=== PATIENT | female | born 1985 | race Caucasian/White ===

== ENCOUNTER → 2019-05-11 10:16 | Outpatient (BNVA) | payer OTHER, SELFPAY | PROVIDERS: Family Provider Electrodiagnostic Medicine; PCP Electrodiagnostic Medicine; Visit Provider Nurse Practitioner Psychiatric/Mental Health | DX: Z51.81 Encounter for therapeutic drug level monitoring (principal); F43.12 Post-traumatic stress disorder, chronic; F60.3 Borderline personality disorder; F50.81 Binge eating disorder; F41.1 Generalized anxiety disorder; E11.9 Type 2 diabetes mellitus without complications | CPT/HCPCS: 80178; 90832; 99214 ==

== ENCOUNTER → 2019-05-18 08:25 | Outpatient (BNVA) | payer OTHER, SELFPAY | PROVIDERS: Family Provider Electrodiagnostic Medicine; PCP Electrodiagnostic Medicine; Visit Provider Nurse Practitioner Psychiatric/Mental Health | DX: Z51.81 Encounter for therapeutic drug level monitoring (principal) | CPT/HCPCS: 80178; 84443 ==

== ENCOUNTER → 2019-05-22 08:07 | Outpatient (BNVA) | payer OTHER, SELFPAY | PROVIDERS: Family Provider Electrodiagnostic Medicine; PCP Electrodiagnostic Medicine; Visit Provider Nurse Practitioner Psychiatric/Mental Health | DX: F31.63 Bipolar disorder, current episode mixed, severe, without psychotic features (principal); F41.1 Generalized anxiety disorder; F50.81 Binge eating disorder; F60.3 Borderline personality disorder; F43.12 Post-traumatic stress disorder, chronic; F17.290 Nicotine dependence, other tobacco product, uncomplicated | CPT/HCPCS: 99214 ==

== ENCOUNTER → 2019-06-09 08:01 | Outpatient (BNVA) | payer OTHER, SELFPAY | PROVIDERS: Family Provider Electrodiagnostic Medicine; PCP Electrodiagnostic Medicine; Visit Provider Nurse Practitioner Psychiatric/Mental Health | DX: Z79.899 Other long term (current) drug therapy (principal); F31.63 Bipolar disorder, current episode mixed, severe, without psychotic features; F41.1 Generalized anxiety disorder; F50.81 Binge eating disorder; F60.3 Borderline personality disorder; F43.12 Post-traumatic stress disorder, chronic; F17.290 Nicotine dependence, other tobacco product, uncomplicated | CPT/HCPCS: 99214 ==

== ENCOUNTER → 2019-06-12 08:43 | Outpatient (BNVA) | payer OTHER, SELFPAY | PROVIDERS: Family Provider Electrodiagnostic Medicine; PCP Electrodiagnostic Medicine; Visit Provider Nurse Practitioner Psychiatric/Mental Health | DX: Z79.899 Other long term (current) drug therapy (principal) | CPT/HCPCS: 83036; 85025 ==

== ENCOUNTER 2019-06-12 13:23 | Outpatient (CLI) | payer OTHER, SELFPAY ==
--- NOTE | 2019-06-12 | ECG_ITS ---
Measurements Intervals [place] Rate: 101 P: 51 SD: 150 QRS: 19 QRSD: 89 T: 56 QT: 337 QTc: 437 SINUS TACHYCARDIA LOW QRS VOLTAGE IN PRECORDIAL LEADS [QRS DEFLECTION < 1.0 mV IN CHEST LEADS] SEPTAL MYOCARDIAL INFARCTION [40+ ms Q WAVE IN V1/V2], PROBABLY OLD Compared to ECG 10/05/2016 19:04:27 Sinus rhythm no longer present Myocardial infarct finding still present Electronically Signed On 06-13-2019 8:10:59 CDT by Donna Hastings [email or web address]
== END 2019-06-12 13:24 | disposition home or self-care (01) ==
LOC: RT 13:28
PROVIDERS: Family Provider Electrodiagnostic Medicine; PCP Electrodiagnostic Medicine; Visit Provider Nurse Practitioner Psychiatric/Mental Health
DX: Z79.899 Other long term (current) drug therapy (principal); R00.0 Tachycardia, unspecified
CPT/HCPCS: 80053; 80061; 93005; 93010

== ENCOUNTER → 2019-06-18 08:30 | Outpatient (BNVA) | payer OTHER, SELFPAY | PROVIDERS: Family Provider Electrodiagnostic Medicine; PCP Electrodiagnostic Medicine; Visit Provider Nurse Practitioner Psychiatric/Mental Health | DX: F60.3 Borderline personality disorder (principal); F31.63 Bipolar disorder, current episode mixed, severe, without psychotic features; F41.1 Generalized anxiety disorder; F50.81 Binge eating disorder; F43.12 Post-traumatic stress disorder, chronic; R94.31 Abnormal electrocardiogram [ECG] [EKG]; F17.290 Nicotine dependence, other tobacco product, uncomplicated | CPT/HCPCS: 99213 ==

== ENCOUNTER 2020-05-17 14:01 | Outpatient (CLI) | payer OTHER, SELFPAY ==
--- NOTE | 2020-05-17 14:05 | USCV_ITS ---
Lilliepraful Kristy Age: 34 Gender: F : 1985 Exam Date: 05/17/2020 14:18 Ordering Phys: Duyen WaddellP RAIL TRACK LAYER Technologist: Lita Dave [place] [facility] [place]: PALP BP: 133 / 88 HR: 72 Rhythm: Sinus Technical Quality: Adequate MEASUREMENTS (Male / Female) Normal Values 2D ECHO LV Diastolic Diameter PLAX 3.5 cm 4.2 - 5.9 / 3.9 - 5.3 cm LV Systolic Diameter PLAX 2.4 cm LV Chamber Size 3.1 cm IVS Diastolic Thickness 1.6 cm 0.6 - 1.0 / 0.6 - 0.9 cm IVS Systolic Thickness 1.7 cm LVPW Diastolic Thickness 1.6 cm 0.6 - 1.0 / 0.6 - 0.9 cm LVPW Systolic Thickness 1.2 cm RV Chamber Size 2.8 cm LVOT Diameter 2.0 cm LV Ejection Fraction 2D Teich 59.5 % LV Ejection Fraction MOD 2C 41.8 % LV Ejection Fraction 2C AL 38.7 % LA Diameter 3.4 cm LA Width 2.7 cm LA Height 4.3 cm RA Width 3.3 cm RA Height 3.7 cm Aorta at Sinotubular Diameter 3.3 cm M-MODE LV Diastolic Diameter MM 5.8 cm 4.2 - 5.9 / 3.9 - 5.3 cm LV Systolic Diameter MM 4.0 cm LV Ejection Fraction MM Teich 57.6 % IVS Diastolic Thickness MM 1.1 cm 0.6 - 1.0 / 0.6 - 0.9 cm IVS Systolic Thickness MM 1.5 cm LVPW Diastolic Thickness MM 1.1 cm 0.6 - 1.0 / 0.6 - 0.9 cm LVPW Systolic Thickness MM 1.7 cm Aortic Annulus Diameter 2.6 cm LA Ao Ratio MM 1.4 MV E Point Septal Separation 0.3 cm DOPPLER AV Peak Velocity 153.0 cm/s LVOT Peak Velocity 88.0 cm/s AV Area Cont Eq vti 1.9 cm squared AV Area Cont Eq pk 1.9 cm squared MV Area PHT 4.1 cm squared Mitral E to A Ratio 1.4 MV E' Velocity 59.0 cm/s Mitral E to MV E' Ratio 9.4 Mitral E to LV E' Lateral Ratio 7.5 Mitral E to LV E' Septal Ratio 13.0 TR Peak Velocity 129.5 cm/s TR Peak Gradient 6.7 mmHg TR Mean Velocity 90.9 cm/s TR Mean Gradient 3.8 mmHg TR Velocity Time Integral 32.7 cm TV Peak E Velocity 84.0 cm/s Right Atrial Pressure 3.0 mmHg Pulmonary Artery Systolic Pressu 9.7 mmHg PV Peak Velocity 99.0 cm/s RV Acceleration Time 0.1 s RV Ejection Time 0.4 s RV AcT/ET 0.4 FINDINGS Left Ventricle Normal left ventricular cavity size. Normal left ventricular systolic function. No regional wall motion abnormalities. Left ventricular ejection fraction is estimated at 57 %. Normal diastolic function. Right Ventricle The right ventricle is normal in size and function. Right Atrium The right atrium is normal in size. Left Atrium The left atrium is normal in size. Mitral Valve Structurally normal mitral valve without significant stenosis or prolapse. There is no mitral regurgitation. Aortic Valve Not well visualized probably normal Tricuspid Valve Mild tricuspid valve regurgitation. Pulmonic Valve Structurally normal pulmonic valve without significant stenosis. There is no pulmonic regurgitation. Pericardium Normal pericardium without effusion. Aorta Normal ascending aorta dimension. CONCLUSIONS 1-Normal left ventricular cavity size. Normal left ventricular systolic function. No regional wall motion abnormalities. Left ventricular ejection fraction is estimated at 57 %. Normal diastolic function. 2-No significant valve abnormalities. 3-There is no pericardial effusion. 4-Pulmonary artery systolic pressure is within normal limits. 5-Right atrial pressure is around 5 mm of mercury. 6-There are no prior echocardiogram studies to compare. Daysi Hastings MD (Electronically Signed) Final Date: 17 May 2020 19:01 S
== END 2020-05-17 14:02 | disposition home or self-care (01) ==
PROVIDERS: PCP Nurse Practitioner Family; Visit Provider Nurse Practitioner Family
DX: R00.2 Palpitations (principal)
CPT/HCPCS: 93306

== ENCOUNTER 2020-07-24 08:00 | Emergency (ER) | payer OTHER, SELFPAY ==
--- NOTE | 2020-07-24 08:09 | ED_ITS ---
HPI - Extremity Injury (Lower) General: Chief Complaint: Extremity Injury, Lower Stated Complaint: R KNEE INJURY WHILE DANCING Time Seen by Provider: 07/24/20 08:09 Source: patient Mode of arrival: ambulatory Limitations: no limitations History of Present Illness: HPI Narrative: 35-year-old female comes in with injury to the right knee. Patient reports last night she was dancing and felt her knee shift weird causing sudden medial knee pain and discomfort. Patient states that she has had problems with that knee before and was told that she had stress fractures in it. Patient has joint line tenderness on the medial side. MD complaint: knee injury Type of Injury: inversion Place: other (Dance cervantes) Severity: moderate Relieving factors: rest Exacerbating factors: weight bearing Context: other (Dancing) Associated symptoms: Reports inability to bear weight Other symptoms: none Review of Systems General: Reports: 10 or more systems reviewed and unremarkable except in HPI and below Musc: Reports: other (Right knee injury) [facility] PFSH: Medical History (Updated 07/24/20 @ 08:40 by ARNOLD Joshi) Binge eating disorder Bipolar disorder, current episode mixed, severe, without psychotic features R/O Borderline personality disorder Essential hypertension Generalized anxiety disorder Nicotine dependence, other tobacco product, uncomplicated Non-insulin dependent type 2 diabetes mellitus Palpitation Post-traumatic stress disorder, chronic Family History Mother Fistula Hypertension Heart problem Grandmother Heart problem NV; Pacemaker Father Hypertension Social History Smoking and tobacco status: current every day smoker e-cigarettes E-Cigarette Details: vaporizer device E-cig/vape details: 3mg nicotine /120ml per 7 days Physical Exam Const: COMMON NORMALS: no acute distress and patient oriented x3 GENERAL APPEARANCE: cooperative HENMT: COMMON NORMALS: normocephalic and Normal external nose present HEAD & SCALP: normal to inspection and normocephalic NOSE: Normal external nose present Eye: GENERAL EYE: appearance normal, both eyes and all related structures Neck/C-Spine: COMMON NORMALS: full ROM Chest: COMMONS NORMALS: normal inspection of the chest Resp: COMMON NORMALS: normal respiratory effort EFFORT & INSPECTION: Yes able to speak in complete sentences Cardio: COMMON NORMALS: regular rate and regular rhythm RATE: regular rate RHYTHM: regular rhythm GI: COMMON NORMALS: non-tender Extremity: NARRATIVE EXTREMITY EXAM: Medial knee joint line tenderness on palpation. Mild swelling to the knee joint. Unable to bear weight due to pain. Distal pulses are intact. No obvious ecchymosis is noted to the knee. Neuro: COMMON NORMALS: patient oriented x3 and moves all extremities Psych: COMMON NORMALS: mental status grossly normal and cooperative Skin: COMMON NORMALS: no rashes or lesions noted GENERAL SKIN EXAM: no rashes or lesions noted Course Vital Signs: Vital signs: Vital Signs Temperature 97.9 F 07/24/20 08:10 Pulse Rate 86 07/24/20 08:10 Respiratory Rate 20 H 07/24/20 08:10 Blood Pressure 177/102 07/24/20 08:10 Pulse Oximetry 99 07/24/20 08:10 MDM - Extremity Injury (Lower) MDM Narrative: Medical decision making narrative: Patient comes in today with injury to the right knee. On exam patient has some joint line tenderness to the medial right knee. There is some mild swelling and discomfort to the knee. Distal pulses are intact. Respirations are even lungs are clear to auscultation. Differential diagnosis includes but not limited to contusion, sprain, meniscal tear, ligament tear. X-ray noted no acute fractures. Reviewed exam with patient with recommendations for treatment and follow-up. Patient reported understanding agreed to plan. Discharge Plan Discharge Patient Disposition: Home Clinical Impression: Acute internal derangement of knee Qualifiers: Laterality: left Qualified Code(s): M23.92 - Unspecified internal derangement of left knee Condition: Stable Prescriptions: New hydrocodone-acetaminophen 5-325 mg tablet 1 tab PO Q8H PRN (Reason: pain) Qty: 7 RF: 0 No Action diphenhydramine-acetaminophen [Tylenol PM Extra Strength] 25-500 mg tablet 1 tab PO Q6H PRNRF: 0 nitroglycerin [Nitrostat] 0.4 mg tablet, sublingual 0.4 mg SUBLINGUAL Q5M PRN (Reason: chest pain) 30 Days Qty: 25 RF: 6 cephalexin [Keflex] 500 mg capsule 500 mg PO TID RF: 0 omeprazole 20 mg tablet,delayed release (DR/EC) 20 mg PO BID RF: 0 amlodipine 5 mg tablet 5 mg PO DAILY Qty: 30 RF: 3 Discharge Orders: Discharge ED (Routine); Ordered 07/24/20 Ordered By: Javed Denny Referrals: Duyen Waddell FNP [Primary Care Provider] - Discharge Diet: Usual diet Discharge Activity: Limit activity as instructed Patient Instructions: Knee Sprain (ED), Opioid Safety Activity Restrictions/Additional Instructions: Increase activity as tolerated. Use ice packs to the knee 15-minute intervals as needed for knee pain. Use acetaminophen for further pain relief. Use hydrocodone with acetaminophen for breakthrough pain. Drink plenty of water with medication. Do gentle range of motion exercises of the knee. Increase weightbearing as tolerated. Follow-up with weight reduction specialist for further evaluation and treatment within 1 week. Return to the ER for new concerns. Coding Level of Care Code ED Chemical Operator for Roque Fwd Exam Comprehensive
--- NOTE | 2020-07-24 08:09 | XRR_ITS ---
PROCEDURE INFORMATION: Exam: XR Right Knee Exam date and time: 07/24/2020 8:18 AM Age: 35 years old Clinical indication: Pain; Knee; Right; Additional info: Injury TECHNIQUE: Imaging protocol: XR Right knee. Views: Frontal, lateral, and oblique, 3 views. COMPARISON: No relevant prior studies available. FINDINGS: Bones/joints: No acute bony abnormality identified. A quadriceps tendon enthesis of the superior pole of the patella is present. Soft tissues: Normal. XR/XR knee RT 3V* [id number] IMPRESSION: No acute bony injury identified.
[2020-07-24 08:10] VITALS: BP 177/102; PULSE 86; RESP 20; TEMP 36.6; O2SAT 99; BMI 45.1
[2020-07-24] MEDS: HYDROcodone-acetaminophen 7.5-325 mg Tablet 1 TAB PO (08:27)
[2020-07-24 09:50] VITALS: BP 168/92; PULSE 75; RESP 16; O2SAT 98
--- NOTE | 2020-07-25 09:41 | DCPLANNER ---
senior electrical project manager had message to schedule a follow up appointment for patient with ortho. senior electrical project manager called the ortho clinic, spoke with Vanessa, gave clinic patients information. senior electrical project manager was told that patients information would be printed and reviewed. Clinic will call patient with appointment information.
--- NOTE | 2020-07-26 07:43 | DCPLANNER ---
Patient has a follow up appointment scheduled for Monday, July 27, 2020 at 1:[address] Llanos at [facility]. Clinic will call patient with appointment information.
--- NOTE | 2020-10-18 07:33 | DCPLANNER ---
Patient had a follow up appointment scheduled for 07.27.[address] Llanos at [facility] - patient did attend appointment.
== END 2020-07-24 09:52 | disposition home or self-care (01) ==
PROVIDERS: Emergency Provider Nurse Practitioner Family; PCP Nurse Practitioner Family
DX: M23.92 Unspecified internal derangement of left knee (principal); I10 Essential (primary) hypertension; E11.9 Type 2 diabetes mellitus without complications; F17.290 Nicotine dependence, other tobacco product, uncomplicated
CPT/HCPCS: 73562; 99283; E0114

== ENCOUNTER 2020-08-15 08:25 | Outpatient (CLI) | payer OTHER, SELFPAY ==
--- NOTE | 2020-08-15 08:45 | MR_ITS ---
WS: [id number] MRI RIGHT KNEE HISTORY: S89.90XA - Unspecified injury of unspecified lower leg, injury 2 weeks ago. COMPARISON: Radiograph 07/24/2020 Anterior cruciate ligament: Small amount of increased signal within the ACL but no full-thickness tea r. Posterior cruciate ligament: Intact. Medial collateral ligament: Intact. Posterior lateral corner structures: Intact. Medial menisci: Intact. Normal signal, size and shape. Lateral meniscus: Intact. Normal signal, size and shape. Extensor mechanism: Distal quadriceps tendon and patellar tendons are intact. Fluid and soft tissue: There is small amount of fluid in the suprapatellar bursa. Small amount of nga ma anterior to the patella. No Leo's cyst. Osseous and articular structures: Patellofemoral compartment: Very slight lateral subluxation of the patella. Very superficial defect i n the cartilage over the patellar eminence. There is a small amount of increased signal in the soft t issues of the medial patella. Patellar retinaculum is not identified as an intact structure. Suspect there is a small amount of marrow edema in the medialmost patella. Medial compartment: Normal. Lateral compartment: Normal joint space. No cartilage defect. There is a small amount of marrow edema in the anterior lateral most femoral condyle with a maximum diameter of 1.2 cm. No fracture. MR/MR knee RT wo con* [id number] IMPRESSION: 1. Marrow edema in the lateral femoral condyle. Likely due to lateral transien t dislocation of the patella. 2. Small joint effusion. 3. Medial patellar retinaculum is poorly visualized and there is an increased T2 signal. I suspect this injury pattern is related to a transient lateral don llar displacement with a high-grade tear involving the medial patellar retinacu lum.
== END 2020-08-15 08:26 | disposition home or self-care (01) ==
LOC: RADSHAW 08:29
PROVIDERS: PCP Nurse Practitioner Family; Visit Provider Orthopaedic Surgery
DX: S89.91XA Unspecified injury of right lower leg, initial encounter (principal); X58.XXXA Exposure to other specified factors, initial encounter; M25.461 Effusion, right knee
CPT/HCPCS: 73721

== ENCOUNTER 2020-10-17 04:34 | Outpatient (CLI) | payer OTHER, SELFPAY ==
[2020-10-17 04:45] VITALS: BP 155/88; PULSE 107; RESP 20; TEMP 37.1; O2SAT 99; BMI 45.1
--- NOTE | 2020-10-17 05:07 | AMB.MCA ---
Patient Information COVID 19 common symptoms: positive fever(s), chills, cough, non-productive cough, fatigue, body aches, headache(s), loss of sense of smell and/or taste, throat pain, nasal congestion and nausea COVID 19 other sytmptoms: negative requiring oxygen Severity: mild Treatment prior to arrival: none Other details: 35-year-old female meets criteria based on her BMI. Risk benefits alternatives discussed and reviewed patient wishes to proceed with infusion. FRANCISCO JWayne COVID test results: No Data to Display Criteria/Plan Inclusion/Exclusion Criteria weight >/= 40kg, + direct test </= 10 days ago and symptom onset </= 10 days ago BMI >/= 35 not requiring hospitalization, not requiring oxygen (if not chronically on oxygen) and no increase oxygen requirement (if chronically on oxygen) Patient education patient/family/caregiver received/reviewed fact sheet, Emergency Use Authorization/unapproved drug status discussed with patient/family/caregiver, alternatives to this treatment discussed with patient/family/caregiver, risks and benefits of medication reviewed with patient/family/caregiver, patient/family/caregiver given opportunity for questions, which were answered and patient consents to receiving Monoclonal Antibody Treatment Plan for treatment Meets criteria for Monoclonal Antibody infusion Ordering Monoclonal Antibody infusion for today
[2020-10-17 07:20] VITALS: BP 117/75; PULSE 79; RESP 18; O2SAT 100
[2020-10-17 08:25] VITALS: BP 148/92; PULSE 84; RESP 18; O2SAT 99
--- NOTE | 2020-10-25 15:45 | DCPLANNER ---
vehicle leasing and rental manager had message that patient received the monoclonal antibody infusion. vehicle leasing and rental manager called to check on patient after receiving the infusion. vehicle leasing and rental manager unable to speak with patient at this time a voicemail was left for patient to return child welfare caseworker phone call.
== END 2020-10-17 04:35 | disposition home or self-care (01) ==
LOC: ER 04:35
PROVIDERS: PCP Nurse Practitioner Family; Visit Provider Nurse Practitioner
DX: U07.1 COVID-19 (principal)
CPT/HCPCS: 96365

== ENCOUNTER 2020-10-27 16:19 | Outpatient (CLI) | payer OTHER, SELFPAY ==
[2020-10-27 17:30] LABS: D Dimer 0.34 ug/mIFEU (0-0.59)
== END 2020-10-27 16:20 | disposition home or self-care (01) ==
PROVIDERS: PCP Nurse Practitioner Family; Visit Provider Family Medicine
DX: Z86.16 Personal history of COVID-19 (principal)
CPT/HCPCS: 85378

== ENCOUNTER 2020-12-02 09:52 | Outpatient (CLI) | payer OTHER, SELFPAY ==
--- NOTE | 2020-12-08 12:32 | ONC CON_ITS ---
Dr. Summers New Patient Note Patient: Kristy Smith Unit #: [id number]: 1985 Dicatated By: Dustin Summers M.D.Date of Visit: Dec 02, 2020 Onc MED New Patient/Consult Referring Physician: ARNOLD CLEMENS, F.N.P. Chief Complaint: Anemia. History of Present Illness: This is a 35-year-old woman with hypochromic/microcytic anemia, presumed iron deficiency. She has hypertension and she has type 2 diabetes, diet controlled. In September 2020 she was diagnosed with COVID-19 virus infection. She was given the monoclonal antibody infusion, and she did not require hospitalization. During follow-up with Jennifer Waddell he was noted to be moderately anemic with her CBC on 10/27/2020 showing hemoglobin 9.1 g and hematocrit 29.4%. The red cell indices were hypochromic/microcytic with MCV 72 and MCH 22. The white blood cell count was normal at 5100 and the platelet count was normal at 384,000. She indicates that she was found to have a low iron level, but that result does not appear to have been included with the records we received. She does complain of extreme fatigue, though she is still working. Her ECOG score is 1. She says her appetite has been bad. She is not had any fever since the Covid infection in September. She sometimes has hot flashes and she sometimes has sweating. She has been having blurred vision and she reports that her gums feel raw. She does not complain of cough, but she does have shortness of breath. She also complains that she has dull pain in the upper left chest and across her back, and ever since the monoclonal antibody infusion she has been having episodes of sharp shooting pain across her upper right chest. She reports having nausea frequently. Her bowels fluctuate between diarrhea and constipation. She has not been aware of any blood in the stool, and she says she did have a negative stool Hemoccult test. She has frequent urination and she occasionally has incontinence. Her periods have been regular, but they are heavy, and she tends to pass mostly clots. She has some joint pain, attributable to wear and tear. She has had headaches in the past, but since the COVID-19 infection her headaches have been constant. She has been dizzy a lot, and she tends to be lightheaded in the mornings. She frequently has numbness in her hands which goes all the way up her arms to her shoulders. She has anxiety and depression. She says her depression had bottomed out with the Covid infection. Past Medical History: Her medical history consists of anxiety, depression, hypertension, and type II diabetes, diet controlled. She has a history of COVID-19 virus infection in September 2020. Past Surgical History: Her surgical/procedural history includes cholecystectomy in 2018 and gastric sleeve procedure in 2012. Medications: amLODIPine Besylate (5 mg) Tablet Oral daily, Ascorbic Acid (500 mg) Tablet Oral daily, B Complex Tablet Oral daily, Biotin (5000 mcg) Tablet Oral daily, Cholecalciferol (50 mcg ) Tablet Oral daily, Escitalopram Oxalate (10 mg) Tablet Oral daily, Omeprazole (20 mg) Capsule Delayed Release Oral daily, QUEtiapine Fumarate (100 mg) Tablet Oral daily, Zinc (50 mg) Tablet Oral daily Allergies: LaMICtal, Penicillin V Potassium, traZODone HCl, and Vraylar. Social History: Ms. Smith is . She has history of smoking 1 pack of cigarettes daily from 2012 until 2017. She has just occasional alcohol use. Family History: Father has hypertension, diabetes, asthma, and depression. Her mother has hypertension, heart disease, and rheumatoid arthritis. She has been treated for cervical cancer. A sister has anxiety and depression. Both maternal grandparents had diabetes. Review Of Symptoms: Constitutional - She reports having extreme fatigue. Her appetite is bad. She has not had fever since her illness in September. She sometimes has hot flashes and she sometimes has sweating. ECOG score is 1, Eyes - She has been having blurry vision, ENMT - She has hearing loss and tinnitus. No sinus congestion/drainage. She complains that her gums feel raw. No sore throat or difficulty swallowing, Hematologic/Lymphatic - She has easy bruising and she also bleeds easily from cuts, Respiratory - She does not complain of cough, but she does have shortness of breath. She has been having dull pain in her upper left chest and across her back, and she has episodes of sharp shooting pain across her upper right chest. She has not had any hemoptysis, Cardiovascular - No angina pain. No palpitations, Gastrointestinal - She has nausea pretty frequently. Her acid reflux is adequately managed with omeprazole. Her bowel fluctuates between diarrhea and constipation. She has not been aware of any blood in the stool, and she did have a negative stool Hemoccult, Genitourinary (F) - No dysuria or hematuria. She has urinary frequency and she occasionally has incontinence. Her menstrual periods are regular, but they tend to be heavy. She mostly just plasses clots, Musculoskeletal - She has some joint pain, attributable to wear and tear, mainly left shoulder, right knee, and ankles, Neurologic - She has a history of headaches. They have been almost constant since the Covid infection. She has been dizzy a lot and she also tends to be lightheaded in the mornings. She complains that her hands frequently go to sleep all the way up her arms to her shoulders, Psychiatric - She has anxiety and depression. She sleeps okay with medication. Vital Signs: Performed on Dec 02, 2020 10:51: 8, 6, 47.29 (HIGH), 2.35 sq.m, 66 in, 98 %, 81 /min, 18 /min, 130/83 mm(hg), 97.6 F (LOW), and 293 lbs (HIGH). Physical Examination: Constitutional - She appears to be in good general health, Eyes - Sclerae nonicteric. Conjunctivae clear, ENMT - No lesions noted in the oral cavity, Neck - No mass or thyromegaly, Hematologic/Lymphatic - No cervical, clavicular, or axillary adenopathy, Respiratory - Lungs are clear with good air movement bilaterally, Cardiovascular - Heart rhythm is regular. There is no murmur, gallop, or rub noted, Abdomen - Moderately distended but soft. Liver and spleen are not enlarged. There is no abdominal mass or ascites noted and there is no inguinal adenopathy, Back/Spine - No spine or CVA tenderness noted, Extremities - Mild edema. Dorsalis pedis pulses are palpable bilaterally, Integumentary - No rashes. No suspicious skin lesions noted, Neurologic - No focal neurologic deficits noted. Problem List: 1. Hypochromic/microcytic anemia, presumed iron deficiency, most likely due to a combination of menstrual blood loss and inadequate oral iron absorption. 2. She had COVID-19 virus infection in September 2020. 3. Hypertension. 4. Type 2 diabetes, diet controlled. 5. Anxiety and depression. Problems Addressed with this Encounter and Plan: Patient with hypochromic/microcytic anemia, presumed iron deficiency. This would most likely be due to to a combination of menstrual blood loss and inadequate oral iron absorption associated with her gastric sleeve procedure. She does have a history of intolerance to oral iron supplements, as in the past she consistently had vomiting on a variety of different oral iron preparations. As such, once I have confirmed the iron deficiency, she will be scheduled to come in for parenteral iron replacement with Injectafer, but that will be subject to verification of insurance coverage. She will have the usual 1-month interval follow-up to verify response. Signed By: Dustin Summers M.D. <<Signature on File>>
== END 2020-12-02 09:53 | disposition home or self-care (01) ==
LOC: ONCMED 09:57
PROVIDERS: PCP Nurse Practitioner Family; Visit Provider Internal Medicine Medical Oncology
DX: D50.9 Iron deficiency anemia, unspecified (principal); I10 Essential (primary) hypertension; E11.9 Type 2 diabetes mellitus without complications; F41.8 Other specified anxiety disorders; Z79.899 Other long term (current) drug therapy; Z86.16 Personal history of COVID-19
CPT/HCPCS: 99204

== ENCOUNTER 2020-12-09 05:48 | Outpatient (CLI) | payer OTHER, SELFPAY ==
[2020-12-09 09:43] LABS: Basophils % 0.4 %; Eosinophils # 0.1 10^3/uL (0.0-0.8); Eosinophils % 0.6 %; Hematocrit 31.4 % (37.0-47.0); Hemoglobin 9.1 g/dL (11.5-15.3); Lymphocytes # 1.9 10^3/uL (0.8-4.8); Lymphocytes % 24.8 %; Mean Corpuscular Hemoglobin 21.4 pg (28.0-34.0); Mean Corpuscular Volume 73.7 fl (81-99); Mean Platelet Volume 8.9 fL (7.4-10.4); Monocytes # 0.6 10^3/uL (0.2-0.9); Monocytes % 7.3 %; Neutrophils # 5.17 10^3/uL (1.8-7.7); Neutrophils % 66.6 %; Nucleated Red Blood Cells % 0 %; Platelet Count 421 10^3/cmm (130-400); Red Blood Count 4.26 10^6/uL (4.1-5.3); Red Cell Distribution Width 17.3 % (12.1-15.1); White Blood Count 7.8 10^3/uL (4.0-10.0)
[2020-12-09] MEDS: ferric carboxy (IVPB) 750 MG in sodium chloride 0.9% (100 ml) 100 ML 460 MG IV (09:56)
[2020-12-09 10:04] LABS: Ferritin 10 ng/mL (15-150); Iron 16 ug/dL (37-145); Percent Saturation 3.5 % (20-50); Total Iron Binding Capacity 453 mcg/dl; Unsaturated Iron Binding 437 ug/dL (112-347)
== END 2020-12-09 05:49 | disposition home or self-care (01) ==
LOC: ONCMED 05:50
PROVIDERS: PCP Nurse Practitioner Family; Visit Provider Internal Medicine Medical Oncology
DX: D50.9 Iron deficiency anemia, unspecified (principal)
CPT/HCPCS: 82728; 83540; 83550; 85025; 96365; J1439

== ENCOUNTER 2020-12-16 06:53 | Outpatient (CLI) | payer OTHER, SELFPAY ==
[2020-12-16] MEDS: ferric carboxy (PYXIS) 750 mg/15 mL INJ IV (10:22)
[2020-12-16] MEDS: sodium chloride 0.9% 100 mL Bag IV (10:22)
== END 2020-12-16 06:54 | disposition home or self-care (01) ==
LOC: ONCMED 06:53
PROVIDERS: PCP Nurse Practitioner Family; Visit Provider Internal Medicine Medical Oncology
DX: D50.9 Iron deficiency anemia, unspecified (principal); Z79.899 Other long term (current) drug therapy
CPT/HCPCS: 96365; J1439

== ENCOUNTER 2020-12-28 10:28 | Emergency (ER) | payer OTHER, SELFPAY ==
[2020-12-28 10:42] VITALS: BP 151/123; PULSE 74; RESP 18; TEMP 36.1; O2SAT 99; BMI 44.4
[2020-12-28 10:59] VITALS: BP 138/79; PULSE 76; RESP 16; O2SAT 98
--- NOTE | 2020-12-28 11:02 | PC.NURSE ---
Patient reports falling from tripping in a hole causing Right arm up to elbow and right leg from ankle to hip. approx 1 hour ago.
--- NOTE | 2020-12-28 11:18 | XR_ITS ---
WS: [id number] RIGHT ANKLE: 3 VIEW(S) TECHNIQUE: AP, oblique(s) and lateral. HISTORY: fall/pain COMPARISON: None available. Normal anatomic alignment with no fracture or dislocation. Mild narrowing at the joint space. Small osteophytes extend laterally from the talus causing narrowin g of the distal talofibular joint space. No osteochondral lesions or loose body. Small calcaneal spur. Enthesopathy at the Achilles tendon. XR/XR ankle RT min 3V* [id number] IMPRESSION: 1. No acute RIGHT ankle fracture. 2. Mild degenerative changes of osteoarthritis.
--- NOTE | 2020-12-28 11:18 | XR_ITS ---
WS: [id number] XR hip RT 2-3V wo/w pel* [id number] REASON FOR EXAM: fall/pain; one view pelvis too please FINDINGS: Mild narrowing of the hip joint space with marginal osteophyte formation of the acetabulum. Femoral neck and head are intact as is the remainder of the proximal right femur. No bony pelvic abnormality identified. No soft tissue abnormality. XR/XR hip RT 2-3V wo/w pel* [id number] IMPRESSION: No acute abnormality.
--- NOTE | 2020-12-28 11:18 | XR_ITS ---
WS: [id number] XR hand RT min 3V* [id number] REASON FOR EXAM: fall/pain FINDINGS: Joint spaces of the right hand are intact and well preserved. No fracture or other focal bone abnormality. No soft tissue abnormality. XR/XR hand RT min 3V* [id number] IMPRESSION: No acute abnormality.
--- NOTE | 2020-12-28 11:18 | XR_ITS ---
WS: [id number] XR knee RT 3V* [id number] REASON FOR EXAM: fall/pain FINDINGS: The joint spaces are intact and well preserved. No fracture or other focal bony abnormality. No soft tissue abnormality. XR/XR knee RT 3V* [id number] IMPRESSION: No acute abnormality.
--- NOTE | 2020-12-28 11:18 | W.ED.FALL ---
HPI - Fall General: Chief Complaint: Fall Stated Complaint: W/C: RLE/RUE INJURIES - FELL ON [facility] GR[facility] Time Seen by Provider: 12/28/20 10:56 Source: patient Mode of arrival: wheelchair Limitations: no limitations History of Present Illness: HPI Narrative: Patient is a 35-year-old female who presents to ED today for evaluation following a fall. Patient tells me she was walking outside of the hospital when she accidentally slipped and fell and landed onto her right side. Patient is an [facility] employee and states this is a Worker's Comp injury. She is complaining of pain to her right hand, right hip, right knee, and right ankle. Patient denies striking her head or LOC. No neck or back pain. She states she was able to get up following the fall and ambulate but required help to get to the ED. complaint: fall Onset (ago): minute(s) Fall from: standing Fall witnessed: yes, by bystander Place fall occurred: work Loss of consciousness: None Prolonged down time: no Symptoms prior to fall: none Context: tripped/slipped (raining outside ) Associated symptoms-after fall: Reports no associated symptoms; Denies abdominal pain, chest pain, headache(s) or neck pain Review of Systems Eyes: Denies: change in vision Card: Denies: chest pain, palpitations, syncope or pre-syncope Resp: Denies: dyspnea GI: Denies: abdominal pain Musc: Reports: joint pain; Denies: neck pain or back pain Skin/Breast: Reports: other (no lacerations noted) Neuro: Denies: headache(s), numbness in extremities, weakness in extremities or sensory changes [facility] ED PFSH: Medical History (Updated 12/28/20 @ 11:52 by RAMONA Rojas) Binge eating disorder Bipolar disorder, current episode mixed, severe, without psychotic features R/O Borderline personality disorder COVID-19 Essential hypertension Generalized anxiety disorder Non-insulin dependent type 2 diabetes mellitus Post-traumatic stress disorder, chronic Surgical History (Updated 12/06/20 @ 08:55 by Michael Villatoro MD) S/P laparoscopic sleeve gastrectomy (~2012) Status post laparoscopic cholecystectomy Family History Mother Fistula Hypertension Heart problem Grandmother Heart problem [place]; Pacemaker Father Hypertension Social History Smoking and tobacco status: never smoked Female Reproductive History: Date of last menstrual period: 12/25/20 Physical Exam Const: COMMON NORMALS: no acute distress, patient oriented x3, no limitations and alert GENERAL APPEARANCE: cooperative ORIENTATION/CONSCIOUSNESS: Yes awake, Yes oriented to person, Yes oriented to place and Yes oriented to time HENMT: COMMON NORMALS: normocephalic and atraumatic HEAD & SCALP: normocephalic and atraumatic Back/Pelvis: COMMON NORMALS: thoracic and lumbar spine normal to inspection, no thoracic nor lumbar tenderness and thoraco-lumbar ROM normal Extremity: GENERAL: Yes normal exam except as noted RIGHT UPPER EXTREMITY: Yes hand & digits (mild TTP R thenar eminence; scant ecchymosis present; full ROM) Right hand and digits: Yes neurovascular exam (normal) RIGHT LOWER EXTREMITY: Yes hip joint (very minor tenderness to lateral aspect) Right hip: Yes ROM (normal) and Yes neurovascular exam (normal), Yes knee joint (TTP anteriomedial joint line) Right knee: Yes palpation (mild swelling noted), Yes ROM (normal) and Yes neurovascular exam (normal) and Yes foot & digits (TTP medial ankle; no swelling; full ROM) Right ankle: Yes neurovascular exam (normal) Neuro: COMMON NORMALS: patient oriented x3, moves all extremities, no focal motor deficits and no sensory deficits noted SENSORIUM/ORIENTATION: Yes alert, Yes oriented to person, Yes oriented to place and Yes oriented to time Skin: TRAUMA: no lacerations or abrasions Course Vital Signs: Vital signs: Vital Signs Temperature 98.4 F 12/28/20 12:09 Pulse Rate 76 12/28/20 12:09 Respiratory Rate 16 12/28/20 12:09 Blood Pressure 146/88 12/28/20 12:09 Pulse Oximetry 98 12/28/20 12:09 MDM - Fall MDM Narrative: Medical decision making narrative: XRs neg. Main complaint is her R knee. Will MARY wrap and give crutches. She was instructed to go to Occupational Health for drug/etoh testing. Follow up with Worker's Comp as instructed. Imaging Data^: XR R ankle: Radiologist's impression: [address] [address]BRnv ReportSigned Patient: Kristy Bermanit #: [id number]: 1985Acct#:[id number]/Sex: 35 / FADM Date: 12/28/20Loc: ERRoom/Bed:Attending Dr: Ordering Provider/Ordering MD: Nieves Blake Date of Service: 12/28/20 Procedure(s): XR ankle RT min 3V* 27293 Accession Number(s): [id number] Report Number: [id number] WS: [id number] RIGHT ANKLE: 3 VIEW(S) TECHNIQUE: AP, oblique(s) and lateral. HISTORY: fall/pain COMPARISON: None available. Normal anatomic alignment with no fracture or dislocation. Mild narrowing at the joint space. Small osteophytes extend laterally from the talus causing narrowing of the distal talofibular joint space. No osteochondral lesions or loose body. Small calcaneal spur. Enthesopathy at the Achilles tendon. XR/XR ankle RT min 3V* 53152 IMPRESSION: 1. No acute RIGHT ankle fracture. 2. Mild degenerative changes of osteoarthritis. Dictated By:Shanelle Hampton DOSigned By:Shnaelle Hampton DOSigned Date/Time:12/28/20 1139DD/ 1137 XR R hand: Radiologist's impression: [address] [address] XRay Report Signed Patient: Kristy Berman Unit #: [id number] : 1985 Age/Sex: 35 / F ADM Date: 12/28/20 Loc: ER Room/Bed: Attending Dr: Ordering Provider/Ordering MD: Nieves Blake Date of Service: 12/28/20 Procedure(s): XR hand RT min 3V* 41059 Accession Number(s): [id number] Report Number: [id number] WS: [id number] XR hand RT min 3V* 39108 REASON FOR EXAM: fall/pain FINDINGS: Joint spaces of the right hand are intact and well preserved. No fracture or other focal bone abnormality. No soft tissue abnormality. XR/XR hand RT min 3V* [id number] IMPRESSION: No acute abnormality. Dictated By: Trevor Gerber Jr, MD Signed By: Trevor Gerber Jr, MD Signed Date/Time: 12/28/20 114 DD/ 1140 XR R hip/pelvis: Radiologist's impression: [address] [address] XRay Report Signed Patient: Kristy Berman Unit #: [id number] : 1985 Age/Sex: 35 / F ADM Date: 12/28/20 Loc: ER Room/Bed: Attending Dr: Ordering Provider/Ordering MD: Nieves Blake Date of Service: 12/28/20 Procedure(s): XR hip RT 2-3V wo/w pel* 72308 Accession Number(s): [id number] Report Number: [id number] WS: [id number] XR hip RT 2-3V wo/w pel* 92136 REASON FOR EXAM: fall/pain; one view pelvis too please FINDINGS: Mild narrowing of the hip joint space with marginal osteophyte formation of the acetabulum. Femoral neck and head are intact as is the remainder of the proximal right femur. No bony pelvic abnormality identified. No soft tissue abnormality. XR/XR hip RT 2-3V wo/w pel* [id number] IMPRESSION: No acute abnormality. Dictated By: Trevor Gerber Jr, MD Signed By: Trevor Gerber Jr, MD Signed Date/Time: 12/28/20 1143 DD/ 1141 XR R knee: Radiologist's impression: [address] [address] XRay Report Signed Patient: Kirsty Berman Unit #: [id number] : 1985 Age/Sex: 35 / F ADM Date: 12/28/20 Loc: ER Room/Bed: Attending Dr: Ordering Provider/Ordering MD: Nieves Blake Date of Service: 10/06/21 Procedure(s): XR knee RT 3V* 00947 Accession Number(s): [id number] Report Number: [id number] WS: [id number] XR knee RT 3V* 68552 REASON FOR EXAM: fall/pain FINDINGS: The joint spaces are intact and well preserved. No fracture or other focal bony abnormality. No soft tissue abnormality. XR/XR knee RT 3V* 60116 IMPRESSION: No acute abnormality. Dictated By: Trevor Gerber Jr, MD Signed By: Trevor Gerber Jr, MD Signed Date/Time: 12/28/20 1144 DD/ 1143 Discharge Plan Discharge Patient Disposition: Home Clinical Impression: Acute pain of right hip Fall from slipping Qualifiers: Encounter type: initial encounter Qualified Code(s): W01.0XXA - Fall on same level from slipping, tripping and stumbling without subsequent striking against object, initial encounter Contusion of hand, right Qualifiers: Encounter type: initial encounter Qualified Code(s): S60.221A - Contusion of right hand, initial encounter Contusion of right knee Qualifiers: Encounter type: initial encounter Qualified Code(s): S80.01XA - Contusion of right knee, initial encounter Right ankle sprain Qualifiers: Encounter type: initial encounter Involved ligament of ankle: unspecified ligament Qualified Code(s): S93.401A - Sprain of unspecified ligament of right ankle, initial encounter Condition: Stable Prescriptions: New acetaminophen-codeine 300-30 mg tablet 1 tab PO Q4H PRN (Reason: pain) Qty: 10 RF: 0 No Action Galzin 50 mg (zinc) capsule 50 mg PO DAILY RF: 0 biotin 2,500 mcg capsule 5 mg PO DAILY RF: 0 cholecalciferol (vitamin D3) 50 mcg (2,000 unit) capsule 50 mcg PO DAILY RF: 0 B-complex with vitamin C Tablet 1 tab PO DAILY RF: 0 omeprazole 20 mg tablet,delayed release (DR/EC) 20 mg PO BID RF: 0 quetiapine [Seroquel] 100 mg tablet 100 mg PO DAILY RF: 0 escitalopram oxalate [Lexapro] 10 mg tablet 10 mg PO DAILY RF: 0 hydrocodone-acetaminophen 5-325 mg tablet 1 tab PO Q4H PRN (Reason: pain) 7 Days Qty: 20 RF: 0 amlodipine 5 mg tablet 5 mg PO DAILY Qty: 30 RF: 3 hydrocodone-acetaminophen 5-325 mg tablet 1 tab PO Q8H PRN (Reason: pain) Qty: 7 RF: 0 Discharge Orders: Discharge ED (Routine); Ordered 12/28/20 Ordered By: Nieves Blake Referrals: Duyen Waddell FNP [Primary Care Provider] - Activity Restrictions/Additional Instructions: After discharge please go to [facility] in the [facility] for your drug and alcohol test. Please follow-up with Worker's Compensation as directed. Coding Level of Care Code ED Spool Maker for Roque Will
[2020-12-28 12:09] VITALS: BP 146/88; PULSE 76; RESP 16; TEMP 36.9; O2SAT 98
== END 2020-12-28 12:12 | disposition home or self-care (01) ==
PROVIDERS: Emergency Provider Physician Assistant; PCP Nurse Practitioner Family
DX: S80.01XA Contusion of right knee, initial encounter (principal); S60.221A Contusion of right hand, initial encounter; S93.401A Sprain of unspecified ligament of right ankle, initial encounter; M25.551 Pain in right hip; I10 Essential (primary) hypertension; E11.9 Type 2 diabetes mellitus without complications; W01.0XXA Fall on same level from slipping, tripping and stumbling without subsequent striking against object, initial encounter; Y99.0 Civilian activity done for income or pay; Y92.239 Unspecified place in hospital as the place of occurrence of the external cause
CPT/HCPCS: 73130; 73502; 73562; 73610; 99283; E0114

== ENCOUNTER → 2020-12-29 15:04 | Outpatient (BNVA) | payer OTHER, SELFPAY | PROVIDERS: PCP Nurse Practitioner Family; Visit Provider Obstetrics & Gynecology | DX: N92.6 Irregular menstruation, unspecified (principal); Z12.4 Encounter for screening for malignant neoplasm of cervix | CPT/HCPCS: 83036; 84443; 85025; 87624; 88305 ==

== ENCOUNTER → 2021-01-10 10:53 | Outpatient (BNVA) | payer OTHER, SELFPAY | PROVIDERS: PCP Nurse Practitioner Family; Visit Provider Obstetrics & Gynecology | DX: N93.9 Abnormal uterine and vaginal bleeding, unspecified (principal); E11.9 Type 2 diabetes mellitus without complications; E66.01 Morbid (severe) obesity due to excess calories; N83.201 Unspecified ovarian cyst, right side | CPT/HCPCS: 76830 ==

== ENCOUNTER 2021-01-17 13:18 | Outpatient (CLI) | payer OTHER, SELFPAY ==
[2021-01-17 14:00] LABS: Basophils % 0.4 %; Eosinophils # 0.1 10^3/uL (0.0-0.8); Eosinophils % 1.2 %; Hematocrit 40.7 % (37.0-47.0); Hemoglobin 12.4 g/dL (11.5-15.3); Lymphocytes # 2.2 10^3/uL (0.8-4.8); Mean Corpuscular HGB Conc 30.5 g/dL (30.0-36.0); Mean Corpuscular Hemoglobin 26.5 pg (28.0-34.0); Monocytes # 0.4 10^3/uL (0.2-0.9); Monocytes % 4.2 %; Neutrophils # 7.49 10^3/uL (1.8-7.7); Neutrophils % 72.9 %; Nucleated Red Blood Cells % 0 %; Platelet Count 340 10^3/cmm (130-400); Red Blood Count 4.68 10^6/uL (4.1-5.3); White Blood Count 10.3 10^3/uL (4.0-10.0)
[2021-01-17 14:25] LABS: Add RBC Morph Yes; Slide Review Slide Review Perform
[2021-01-17 14:54] LABS: Anisocytosis 2+; Ovalocytes 2+; Pathology Refferal No; Tear Drop Cells 1+
[2021-01-17 14:55] LABS: RBC Morph Comp Yes
== END 2021-01-17 13:19 | disposition home or self-care (01) ==
LOC: ONCMED 13:20
PROVIDERS: PCP Nurse Practitioner Family; Visit Provider Internal Medicine Medical Oncology
DX: D50.9 Iron deficiency anemia, unspecified (principal)
CPT/HCPCS: 36415; 85025

== ENCOUNTER 2021-01-19 06:35 | Outpatient (CLI) | payer OTHER, SELFPAY ==
[2021-01-19 17:00] LABS: Ferritin 118 ng/mL (15-150); Iron 29 ug/dL (37-145); Percent Saturation 8.8 % (20-50); Total Iron Binding Capacity 328 mcg/dl; Unsaturated Iron Binding 299 ug/dL (112-347)
--- NOTE | 2021-01-22 11:45 | ONC FU_ITS ---
Dr. Summers Patient Follow-Up Note Patient: Kristy Smith Unit #: [id number]: 1985 Dicatated By: Dustin Summers M.D.Date of Visit:Jan 19, 2021 Onc Med Follow-up/Prog Note Chief Complaint: Anemia. History of Present Illness: This is a 35-year-old woman with hypochromic/microcytic anemia, presumed iron deficiency. She has hypertension and she has type 2 diabetes, diet controlled. In September 2020 she was diagnosed with COVID-19 virus infection. She was given the monoclonal antibody infusion, and she did not require hospitalization. During follow-up with Jennifer Waddell he was noted to be moderately anemic with her CBC on 10/27/2020 showing hemoglobin 9.1 g and hematocrit 29.4%. The red cell indices were hypochromic/microcytic with MCV 72 and MCH 22. The white blood cell count was normal at 5100 and the platelet count was normal at 384,000. She indicates that she was found to have a low iron level, but that result does not appear to have been included with the records we received. I had seen her initially on 12/02/2020. With a history of intolerance to oral iron supplements, she was recommended to have parenteral iron replacement. Her repeat CBC on 12/09/2020 showed hemoglobin low at 9.1 g with MCV 73.7 and MCH 21.4. Her serum iron studies showed low transferrin saturation at 3.5% and the ferritin was low at 10 ng/mL, consistent with iron deficiency. She was then given 2 infusions of Injectafer, which she tolerated well. She returns for a follow-up visit. She is feeling much better following the parenteral iron. She is working and she has normal activity. ECOG score is 0. She says her appetite is bad, that she attributes to recent Covid vaccination. She has not had fever, she does have hot flashes. She had menstrual bleeding for 3 weeks straight being near the end of November and extending into December. She has had [employer] follow-up Dr. Aranda. She also is seeing Dr. Villatoro for GI evaluation. Medications: amLODIPine Besylate (5 mg) Tablet Oral daily, Ascorbic Acid (500 mg) Tablet Oral daily, B Complex Tablet Oral daily, Biotin (5000 mcg) Tablet Oral daily, Cholecalciferol (50 mcg ) Tablet Oral daily, Escitalopram Oxalate (10 mg) Tablet Oral daily, Omeprazole (20 mg) Capsule Delayed Release Oral daily, QUEtiapine Fumarate (100 mg) Tablet Oral daily, Zinc (50 mg) Tablet Oral daily Allergies: LaMICtal, Penicillin V Potassium, traZODone HCl, and Vraylar. Vital Signs: Performed on Jan 19, 2021 15:43 Height - 66.00 in Weight - 291.8 lbs (LOW) BSA - 2.35 sq.m BMI - 47.10 (HIGH) Temperature - 98.4 F Pulse - 69 /min Respiration - 18 /min BP - 118/79 mm(hg) O2 Sat - 95 % (LOW) Pain - 3 Fatigue - 6 Physical Examination: Constitutional - She looks good generally, Eyes - Sclerae nonicteric. Conjunctivae clear, ENMT - No lesions noted in the oral cavity, Hematologic/Lymphatic - No cervical, clavicular, or axillary adenopathy, Respiratory - Lungs are clear with good air movement bilaterally, Cardiovascular - Heart rhythm is regular. There is no murmur, gallop, or rub noted, Abdomen - Moderately distended. Liver and spleen are not enlarged. There is no abdominal mass or ascites noted and there is no inguinal adenopathy, Extremities - No edema, Neurologic - No focal neurologic deficits noted. Lab/Imaging: Test performed on Jan 17, 2021 13:52 WBC 10.3 10^9/L RBC 4.68 10^12/L HGB 12.4 g/dL HCT 40.7 % MCV 87 fl MCH 26.5 pg MCHC 30.5 g/dL Platelet Count 340 10^9/L Neutrophils (Gran) 7.49 10^9/L Lymphocytes 2.2 10^9/L Monocytes 0.4 10^9/L Eosinophils 0.1 10^9/L Basophils 0 10^9/L Problem List: 1. Iiron deficiency anemia, most likely due to a combination of menstrual blood loss and inadequate oral iron absorption. 2. She had COVID-19 virus infection in September 2020. 3. Hypertension. 4. Type 2 diabetes, diet controlled. 5. Anxiety and depression. Problems Addressed with this Encounter and Plan: Patient with iron deficiency anemia. This is most likely due to a combination of menstrual blood loss and inadequate oral iron absorption associated with a previous gastric sleeve procedure. As she story of intolerance to oral iron supplements, she was given parenteral iron replacement with infusions of Injectafer on 12/09/2020 and 12/16/2020. She tolerated these well, and she has had a very good clinical response. She will now continue follow-up with Duyen Waddell, which should include follow-up blood counts on a regular basis, least every 3 months. I will see her again as needed. Signed By: Dustin Summers M.D. <<Signature on File>>
== END 2021-01-19 06:36 | disposition home or self-care (01) ==
PROVIDERS: PCP Nurse Practitioner Family; Visit Provider Internal Medicine Medical Oncology
DX: D50.9 Iron deficiency anemia, unspecified (principal); I10 Essential (primary) hypertension; E11.9 Type 2 diabetes mellitus without complications; F41.9 Anxiety disorder, unspecified; F32.A Depression, unspecified; Z86.16 Personal history of COVID-19
CPT/HCPCS: 36415; 82728; 83540; 83550; 99214

== ENCOUNTER → 2021-02-10 11:16 | Outpatient (BNVA) | payer OTHER, SELFPAY | PROVIDERS: PCP Nurse Practitioner Family; Visit Provider Obstetrics & Gynecology | DX: N83.202 Unspecified ovarian cyst, left side (principal); D25.9 Leiomyoma of uterus, unspecified | CPT/HCPCS: 76830 ==

== ENCOUNTER 2021-03-28 15:22 | Outpatient (CLI) | payer OTHER, SELFPAY ==
[2021-03-28 16:07] LABS: Basophils % 0.5 %; Eosinophils # 0.1 10^3/uL (0.0-0.8); Eosinophils % 1.5 %; Hematocrit 41.6 % (37.0-47.0); Hemoglobin 13.6 g/dL (11.5-15.3); Lymphocytes # 2.7 10^3/uL (0.8-4.8); Lymphocytes % 34.9 %; Mean Corpuscular HGB Conc 32.7 g/dL (30.0-36.0); Mean Corpuscular Hemoglobin 29.2 pg (28.0-34.0); Mean Corpuscular Volume 89.5 fl (81-99); Mean Platelet Volume 8.5 fL (7.4-10.4); Monocytes # 0.5 10^3/uL (0.2-0.9); Neutrophils % 56.6 %; Nucleated Red Blood Cells % 0 %; Platelet Count 345 10^3/cmm (130-400); Red Blood Count 4.65 10^6/uL (4.1-5.3); Red Cell Distribution Width 13.5 % (12.1-15.1); White Blood Count 7.8 10^3/uL (4.0-10.0)
[2021-03-28 16:30] LABS: Ferritin 66 ng/mL (15-150); Iron 28 ug/dL (37-145); Percent Saturation 8.9 % (20-50); Total Iron Binding Capacity 313 mcg/dl; Unsaturated Iron Binding 285 ug/dL (112-347)
== END 2021-03-28 15:23 | disposition home or self-care (01) ==
PROVIDERS: PCP Nurse Practitioner Family; Visit Provider Internal Medicine Medical Oncology
DX: D50.9 Iron deficiency anemia, unspecified (principal)
CPT/HCPCS: 36415; 82728; 83540; 83550; 85025

== ENCOUNTER 2021-05-12 10:21 | Outpatient (CLI) | payer OTHER, SELFPAY ==
[2021-05-12 11:15] LABS: Basophils % 0.4 %; Eosinophils # 0.1 10^3/uL (0.0-0.8); Eosinophils % 1.1 %; Hematocrit 40.3 % (37.0-47.0); Hemoglobin 12.8 g/dL (11.5-15.3); Lymphocytes # 2.6 10^3/uL (0.8-4.8); Lymphocytes % 25.9 %; Mean Corpuscular HGB Conc 31.8 g/dL (30.0-36.0); Mean Corpuscular Hemoglobin 29.6 pg (28.0-34.0); Mean Corpuscular Volume 93.1 fl (81-99); Mean Platelet Volume 8.5 fL (7.4-10.4); Monocytes # 0.5 10^3/uL (0.2-0.9); Monocytes % 5.2 %; Neutrophils # 6.66 10^3/uL (1.8-7.7); Nucleated Red Blood Cells % 0 %; Platelet Count 327 10^3/cmm (130-400); Red Blood Count 4.33 10^6/uL (4.1-5.3); Red Cell Distribution Width 13.2 % (12.1-15.1)
[2021-05-12 13:20] LABS: Ferritin 77 ng/mL (15-150); Iron 88 ug/dL (37-145)
[2021-05-12 13:46] LABS: Percent Saturation 24.7 % (20-50); Total Iron Binding Capacity 356 mcg/dl; Unsaturated Iron Binding 268 ug/dL (112-347)
== END 2021-05-12 10:22 | disposition home or self-care (01) ==
PROVIDERS: PCP Nurse Practitioner Family; Visit Provider Internal Medicine Medical Oncology
DX: D50.9 Iron deficiency anemia, unspecified (principal)
CPT/HCPCS: 82728; 83540; 83550; 85025

== ENCOUNTER 2021-05-22 08:55 | Outpatient (CLI) | payer OTHER, SELFPAY ==
[2021-05-22 10:18] LABS: Free T4 Free Thyroxine 1.05 ng/dL (0.82-1.77); Thyroid Stimulating Hormone 1.48 uIU/mL (0.27-4.20)
--- NOTE | 2021-05-23 08:54 | ONC FU_ITS ---
Jazmín Michael Progress Note Patient: Kristy Smith Unit #: [id number]: 1985 Dicatated By: Jazmín Michael N.P.Date of Visit:May 22, 2021 Onc MED Follow-up/Prog Note Chief Complaint: Anemia. History of Present Illness: This is a 35-year-old woman with hypochromic/microcytic anemia, presumed iron deficiency. She has hypertension and she has type 2 diabetes, diet controlled. In September 2020 she was diagnosed with COVID-19 virus infection. She was given the monoclonal antibody infusion, and she did not require hospitalization. During follow-up with Jennifer Waddell he was noted to be moderately anemic with her CBC on 10/27/2020 showing hemoglobin 9.1 g and hematocrit 29.4%. The red cell indices were hypochromic/microcytic with MCV 72 and MCH 22. The white blood cell count was normal at 5100 and the platelet count was normal at 384,000. She indicates that she was found to have a low iron level, but that result does not appear to have been included with the records we received. Dr. Summers had seen her initially on 12/02/2020. With a history of intolerance to oral iron supplements, she was recommended to have parenteral iron replacement. Her repeat CBC on 12/09/2020 showed hemoglobin low at 9.1 g with MCV 73.7 and MCH 21.4. Her serum iron studies showed low transferrin saturation at 3.5% and the ferritin was low at 10 ng/mL, consistent with iron deficiency. She was then given 2 infusions of Injectafer, which she tolerated well. She presents today for follow-up. She states that she continues to have fatigue. It does not interfere with her activities but it does seem to be getting progressively worse. Her appetite has been good. She denies fever, chills, night sweats. No shortness of breath, cough, chest pain. No GI or problems. She experienced back pain that is chronic in nature. She has been having headaches recently especially behind her eyes and in the frontal region. It was noted today that her blood pressure was elevated at 181/114 and then a recheck of 172/104. She is currently on amlodipine 10 mg. She denies dizziness or numbness or tingling. Review Of Symptoms:See above. Past Medical History: Anxiety Depression History of COVID-19 virus infection Hypertension Type II diabetes Past Surgical History: Cholecystectomy in 2019 Gastric sleeve procedure in 2012 Allergies: LaMICtal, Penicillin V Potassium, traZODone HCl, and Vraylar. Medications: amLODIPine Besylate (5 mg) Tablet Oral daily Ascorbic Acid (500 mg) Tablet Oral daily B Complex Tablet Oral daily Biotin (5000 mcg) Tablet Oral daily Cholecalciferol (50 mcg ) Tablet Oral daily Escitalopram Oxalate (10 mg) Tablet Oral daily Omeprazole (20 mg) Capsule Delayed Release Oral daily QUEtiapine Fumarate (100 mg) Tablet Oral daily Zinc (50 mg) Tablet Oral daily Family History: Father has hypertension, diabetes, asthma, and depression. Her mother has hypertension, heart disease, and rheumatoid arthritis. She has been treated for cervical cancer. A sister has anxiety and depression. Both maternal grandparents had diabetes. Social History: Ms. Smith is . Ms. Smith has never smoked. She is an active drinker.She has indicated exposure to the following products: vape. She has history of smoking 1 pack of cigarettes daily from 2013 until 2017. She has just occasional alcohol use. Physical Examination: Vitals are not available for this patient. Performance Status: 0 - Fully active, able to carry on all predisease activities without restrictions. (ECOG) Constitutional Alert, cooperative, oriented. Mood and affect appropriate. Appears close to chronological age. Well nourished. Well developed. Head Normocephalic; no scars. Eyes Conjunctivae and sclerae are clear and without icterus. Pupils are reactive and equal. Respiratory Lungs are clear to auscultation without rhonchi or wheezing. Cardiovascular Regular rate and rhythm of heart without murmurs, gallops or rubs. Abdomen Non-tender, non-distended, no masses, ascites or hepatosplenomegaly. Good bowel sounds. No guarding or rebound tenderness. Extremities No visible deformities, no cyanosis, clubbing or edema. Pulses 3+ and equal bilaterally. Musculoskeletal No tenderness or swelling, normal range of motion without obvious weakness. Psychiatric Alert and oriented times three. Coherent speech. Verbalizes understanding of our discussions today. Laboratory: Test performed on Jan 17, 2021 13:52 WBC 10.3 10^9/L RBC 4.68 10^12/L HGB 12.4 g/dL HCT 40.7 % MCV 87 fl MCH 26.5 pg MCHC 30.5 g/dL Platelet Count 340 10^9/L Neutrophils (Gran) 7.49 10^9/L Lymphocytes 2.2 10^9/L Monocytes 0.4 10^9/L Eosinophils 0.1 10^9/L Basophils 0 10^9/L Impression: 1. Iiron deficiency anemia, most likely due to a combination of menstrual blood loss and inadequate oral iron absorption. 2. She had COVID-19 virus infection in September 2020. 3. Hypertension. 4. Type 2 diabetes, diet controlled. 5. Anxiety and depression. Plan: Patient with iron deficiency anemia. This is most likely due to a combination of menstrual blood loss and inadequate oral iron absorption associated with a previous gastric sleeve procedure. As history of intolerance to oral iron supplements, she was given parenteral iron replacement with infusions of Injectafer on 12/09/2020 and 12/16/2020. She tolerated these well, and she has had a very good clinical response. Patient presents today complaining of continued fatigue. Her labs were reviewed with herWith a hemoglobin of 12.8 hematocrit 40.3, iron level 88, TIBC 356 saturation 24.7% and ferritin at 77. She states that she has a follow-up appointment with Dr. Aranda. He has been rescheduled due to bad weather. She has had vitamin B12 checked in the past and it has been within normal limits. We will check a TSH T4 to rule out hypothyroidism as a reason for her continued fatigue. She has a history of hypertension and is currently on amlodipine. Her blood pressures were elevated today in the office. She states that she will see Duyen Waddell NP, her primary care, today after this visit. Patient to follow-up in 3 months with CBC and iron studies. Signed By: Jazmín Michael N.P. <<Signature on File>>
== END 2021-05-22 08:56 | disposition home or self-care (01) ==
PROVIDERS: PCP Nurse Practitioner Family; Visit Provider Nurse Practitioner Family
DX: D50.9 Iron deficiency anemia, unspecified (principal); I10 Essential (primary) hypertension; E11.9 Type 2 diabetes mellitus without complications; F41.9 Anxiety disorder, unspecified; F32.A Depression, unspecified; R53.83 Other fatigue; Z79.899 Other long term (current) drug therapy; Z86.16 Personal history of COVID-19
CPT/HCPCS: 36415; 84439; 84443; 99214

== ENCOUNTER 2021-09-04 10:28 | Oncology outpatient (recurring) (ONCR) | payer OTHER, SELFPAY | END 2021-09-21 23:59 | disposition home or self-care (01) | PROVIDERS: PCP Nurse Practitioner Family; Referring Provider Nurse Practitioner Family; Visit Provider Internal Medicine Medical Oncology | DX: D50.9 Iron deficiency anemia, unspecified (principal); N92.1 Excessive and frequent menstruation with irregular cycle; K90.9 Intestinal malabsorption, unspecified; L98.9 Disorder of the skin and subcutaneous tissue, unspecified; Z79.899 Other long term (current) drug therapy | CPT/HCPCS: 83540; 83550; 85025 ==

== ENCOUNTER 2021-12-05 09:17 | Oncology outpatient (recurring) (ONCR) | payer OTHER, SELFPAY ==
[2021-12-05 10:00] LABS: Basophils # 0.1 10^3/uL (0.0-0.1); Basophils % 0.6 %; Eosinophils # 0.1 10^3/uL (0.0-0.8); Eosinophils % 0.8 %; Hematocrit 40.7 % (37.0-47.0); Hemoglobin 12.4 g/dL (11.5-15.3); Lymphocytes # 2.3 10^3/uL (0.8-4.8); Lymphocytes % 23.3 %; Mean Corpuscular HGB Conc 30.5 g/dL (30.0-36.0); Mean Corpuscular Hemoglobin 27.6 pg (28.0-34.0); Mean Corpuscular Volume 90.4 fl (81-99); Mean Platelet Volume 8.6 fL (7.4-10.4); Monocytes # 0.6 10^3/uL (0.2-0.9); Neutrophils # 6.87 10^3/uL (1.8-7.7); Neutrophils % 68.9 %; Nucleated Red Blood Cells % 0 %; Platelet Count 353 10^3/cmm (130-400); Red Cell Distribution Width 14.3 % (12.1-15.1)
[2021-12-05 10:26] LABS: Ferritin 5 ng/mL (15-150); Iron 53 ug/dL (37-145); Percent Saturation 13.4 % (20-50); Total Iron Binding Capacity 394 mcg/dl; Unsaturated Iron Binding 341 ug/dL (112-347)
== END 2021-12-22 23:59 | disposition home or self-care (01) ==
PROVIDERS: Nurse Practitioner; PCP Nurse Practitioner Family; Referring Provider Nurse Practitioner Family; Visit Provider Internal Medicine Medical Oncology
DX: D50.8 Other iron deficiency anemias (principal)
CPT/HCPCS: 36415; 82728; 83540; 83550; 85025

== ENCOUNTER 2022-01-16 12:35 | Oncology outpatient (recurring) (ONCR) | payer OTHER, SELFPAY ==
[2022-01-16] MEDS: sodium chloride 0.9% 250 ML 100 ML IV (13:09)
[2022-01-16] MEDS: ferric carboxy (IVPB) 750 MG in sodium chloride 0.9% (100 ml) 100 ML 345 MG IV (13:10)
== END 2022-01-22 23:59 | disposition home or self-care (01) ==
LOC: ONCMED 12:36
PROVIDERS: PCP Nurse Practitioner Family; Visit Provider Internal Medicine Medical Oncology
DX: D50.8 Other iron deficiency anemias (principal)
CPT/HCPCS: 96365; J1439; J7050

== ENCOUNTER 2022-01-23 13:27 | Emergency (ER) | payer OTHER, SELFPAY ==
[2022-01-23 13:31] VITALS: BP 178/128; PULSE 95; RESP 16; TEMP 36.6; O2SAT 96; BMI 46.6
--- NOTE | 2022-01-23 14:46 | CT_ITS ---
WS: [id number] CT HEAD TECHNIQUE: Noncontrast CT of the head obtained from the skullbase to the vertex. CLINICAL INFORMATION: head injury with severe headache COMPARISON: None. DLP: 1090.[address] scans at [facility] use at least one of these dose optimization techniques: automated e xposure control; mA and/or kV adjustment per patient size (includes targeted exams where dose is matc hed to clinical indication); or iterative reconstruction. FINDINGS: No evidence of intracranial hemorrhage or mass effect. Ventricular system and basal cisterns are don nt. No extra-axial fluid collections. No evidence of mass or mass effect. Normal lama-white different iation. Paranasal sinuses and mastoid air cells are well aerated. .Normal visualized soft tissues. CT/CT head wo con* 65936 IMPRESSION: 1. No evidence of intracranial hemorrhage or mass effect. 2. Normal lama-white differentiation. 3. No acute intracranial findings.
--- NOTE | 2022-01-23 15:17 | W.ED.HEATRA ---
HPI - Head Injury General: Chief complaint: Head Injury Stated complaint: [facility] sent for hitting head and N/D Time Seen by Provider: 01/23/22 13:44 History of Present Illness: Patient is a 36-year-old female comes to the ED with severe headache. Patient was seen at [facility] this morning and was told to come to the ED for a head CT. Patient says approximately 2 weeks ago she fell and hit her head on kitchen table. Since then she has had on and off headaches. She had a professional massage done on her head several days ago and headache got worse. She also notes that she has been having multiple episodes of liquid diarrhea daily for the past 3 days. Denies any fevers, chills, abdominal pain, nausea or vomiting. Associated symptoms: Deny nausea, neck pain or vomiting Review of Systems Const: Denies: fever(s), chills or fatigue Eyes: Denies: change in vision or eye discomfort ENMT: Denies: throat pain, odynophagia, nasal discharge or nasal congestion Card: Denies: chest pain, palpitations, edema, swelling of feet/ankles, dyspnea on exertion or orthopnea Resp: Denies: dyspnea, productive cough or non-productive cough GI: Reports: diarrhea; Denies: abdominal pain, nausea, vomiting, constipation or hematochezia : Denies: flank pain, dysuria or hematuria Musc: Denies: neck pain, back pain or extremity swelling Skin/Breast: Denies: rash or new lesions Neuro: Reports: headache(s); Denies: numbness in extremities or weakness in extremities [facility] ED PFSH: Medical History Anxiety and depression Binge eating disorder Bipolar disorder, current episode mixed, severe, without psychotic features R/O Borderline personality disorder Essential hypertension History of COVID-19 Non-insulin dependent type 2 diabetes mellitus Other iron deficiency anemias Post-traumatic stress disorder, chronic Surgical History S/P laparoscopic sleeve gastrectomy (~2012) Status post laparoscopic cholecystectomy Family History Mother Fistula Hypertension Heart problem CAD (coronary artery disease) Cervical cancer dx in her 30's Hyperlipidemia Stroke Grandmother Heart problem [place]; Pacemaker Diabetes Maternal Father Hypertension Hyperlipidemia Stroke Denies family history of Chronic kidney disease (CKD) Anesthesia complication Bleeding disorder Social History Smoking and tobacco status: former smoker Alcohol intake: current Alcohol intake frequency: holidays/special occasions only Alcohol type: hard liquor Adopted: No Caregiver/support person: Yes Lives independently: No Household members: children Housing: House Marital status: Number of children: 1 Current occupational status: employed Female Reproductive History: Date of last menstrual period: 12/25/20 Physical Exam Const: COMMON NORMALS: no acute distress, patient oriented x3 and alert GENERAL APPEARANCE: cooperative and comfortable HENMT: COMMON NORMALS: normocephalic HEAD & SCALP: normocephalic MOUTH: Normal oral and palatal mucosa present THROAT: posterior oropharynx normal and uvula midline Neck/C-Spine: COMMON NORMALS: supple GENERAL: Yes normal visual inspection Resp: COMMON NORMALS: normal respiratory effort, No retractions, No use of accessory muscles and clear to auscultation bilaterally AUSCULTATION: clear to auscultation bilaterally Cardio: COMMON NORMALS: regular rate, regular rhythm, S1 normal heart sound present, S2 normal heart sound present, No gallops present (Cardio), No clicks present (Cardio), No murmurs present (Cardio) and Peripheral pulses 2+ throughout RATE: regular rate RHYTHM: regular rhythm HEART SOUNDS: S1 normal heart sound present and S2 normal heart sound present PERIPHERAL PULSES: Peripheral pulses 2+ throughout GI: COMMON NORMALS: Normal to inspection, nondistended, normoactive bowel sounds present, Soft to palpation, non-tender and no masses PALPATION: Yes Soft to palpation : COMMON NORMALS: Yes no CVA tenderness BLADDER/KIDNEY EXAM: Yes no CVA tenderness Back/Pelvis: COMMON NORMALS: no CVA tenderness Extremity: COMMON NORMALS: normal to inspection Neuro: COMMON NORMALS: patient oriented x3 SENSORIUM/ORIENTATION: Yes alert GAIT: Yes Normal gait present Skin: GENERAL SKIN EXAM: dry skin Course Vital Signs: Vital signs: Vital Signs Temperature 98.0 F 01/23/22 16:36 Pulse Rate 75 01/23/22 16:36 Respiratory Rate 16 01/23/22 16:36 Blood Pressure 148/83 01/23/22 16:36 Pulse Oximetry 97 01/23/22 16:36 Oxygen Delivery Me thod 01/23/22 13:31 MDM - Head Injury Medcial Decision Making Patient is a 36-year-old female comes to the ED with a headache after head injury. She was sent here to the ER from [facility] to get a head CT scan. Patient has also been having diarrhea for the past 3 days. Vitals are stable. Patient appears nontoxic and in no acute distress or pain. Her exam is benign. CBC and CMP were unremarkable. CT of head showed no acute findings. She was given a dose of IM Toradol here in the ED and her symptoms did improve. She was stable for discharge home and diagnosed with posttraumatic headache. Told to follow-up with her PCP within the next week for reevaluation. Return to ED precautions given. Patient understood and agreed with plan. Lab Data I reviewed the patient's lab results. : 01/23/22 15:25 01/23/22 15:[address] 01/23/22 14:46 IMPRESSION: 1. No evidence of intracranial hemorrhage or mass effect. 2. Normal lama-white differentiation. 3. No acute intracranial findings. Laboratory Results WBC 6.1 10^3/uL (4.0-10.0) 01/23/22 15:25 RBC 4.46 10^6/uL (4.1-5.3) 01/23/22 15:25 Hgb 12.3 g/dL (11.5-15.3) 01/23/22 15:25 Hct 38.9 % (37.0-47.0) 01/23/22 15:25 MCV 87.2 fl (81-99) 01/23/22 15:25 MCH 27.6 pg (28.0-34.0) L 01/23/22 15:25 MCHC 31.6 g/dL (30.0-36.0) 01/23/22 15:25 RDW 15.0 % (12.1-15.1) 01/23/22 15:25 Plt Count 298 10^3/cmm (130-400) 01/23/22 15:25 MPV 8.2 fL (7.4-10.4) 01/23/22 15:25 Neut % (Auto) 56.3 % 01/23/22 15:25 Lymph % (Auto) 32.7 % 01/23/22 15:25 Yell % (Auto) 7.9 % 01/23/22 15:25 Eos % (Auto) 2.1 % 01/23/22 15:25 Baso % (Auto) 0.7 % 01/23/22 15:25 Neut # (Auto) 3.40 10^3/uL (1.8-7.7) 01/23/22 15:25 Lymph # (Auto) 2.0 10^3/uL (0.8-4.8) 01/23/22 15:25 Yell # (Auto) 0.5 10^3/uL (0.2-0.9) 01/23/22 15:25 Eos # (Auto) 0.1 10^3/uL (0.0-0.8) 01/23/22 15:25 Baso # (Auto) 0.0 10^3/uL (0.0-0.1) 01/23/22 15:25 Nucleated RBC % (auto) 0 % 01/23/22 15:25 Nucleated RBCs # 0.0 /100WBC 01/23/22 15:25 Sodium 140 mmol/L (136-145) 01/23/22 15:25 Potassium 4.0 mmol/L (3.5-5.1) 01/23/22 15:25 Chloride 105 mmol/L (98-107) 01/23/22 15:25 Carbon Dioxide 25 mmol/L (22-29) 01/23/22 15:25 Anion Gap 14.0 (5-19) 01/23/22 15:25 BUN 4 mg/dL (6-20) L 01/23/22 15:25 Creatinine 0.5 mg/dL (0.5-0.9) 01/23/22 15:25 GFR Calculation 138.1 mL/min (90-130) H 01/23/22 15:25 Glucose 95 mg/dL (65-115) 01/23/22 15:25 Calculated Osmolality 287 mOsm/kg (285-295) 01/23/22 15:25 Calcium 8.8 mg/dL (8.5-10.5) 01/23/22 15:25 Total Bilirubin 0.2 mg/dL (0.15-1.2) 01/23/22 15:25 AST 36 U/L (0-32) H 01/23/22 15:25 ALT 21 U/L (0-33) 01/23/22 15:25 Alkaline Phosphatase 114 U/L (35-105) H 01/23/22 15:25 Total Protein 7.1 g/dL (6.6-8.7) 01/23/22 15:25 Albumin 4.1 g/dL (3.5-5.2) 01/23/22 15:25 Globulin 3.0 g/dL (1.3-4.6) 01/23/22 15:25 Discharge Plan Discharge Patient Disposition: Home Clinical Impression: Headache, post-traumatic, acute Qualifiers: Intractability: not intractable Qualified Code(s): G44.319 - Acute post-traumatic headache, not intractable Condition: Stable Prescriptions: No Action omeprazole 20 mg tablet,delayed release (DR/EC) 40 mg PO DAILY quetiapine [Seroquel] 100 mg tablet 100 mg PO DAILY escitalopram oxalate [Lexapro] 10 mg tablet 20 mg PO DAILY amlodipine 5 mg tablet 10 mg PO DAILY Discharge Orders: Discharge ED (Routine); Ordered 01/23/22 Ordered By: Jian Munoz Referrals: Duyen Waddell FNP [Primary Care Provider] - Discharge Diet: Regular Discharge Activity: Increase activity as tolerated Patient Instructions: Concussion/Head Injury - Adult Activity Restrictions/Additional Instructions: Follow-up with medical provider as directed in the next 5 to 7 days reevaluation. Continue taking all home medications as prescribed. Take [id number] Tylenol as needed for any reoccurring headaches. Return to the ER or your medical provider if condition worsens. Please read and understand discharge instructions. Thank you for choosing [facility] for your healthcare needs today. Please realize this is an emergency room and that we are providing you with a medical screening exam and this may not be complete and all inclusive of all the testing and or work up that you may need to determine your ailment or severity of your illness. It is very important that you follow up as instructed or that you return to the Emergency Department should you have concerns or if your condition changes or worsens in any way. 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
[2022-01-23 15:34] LABS: Basophils % 0.7 %; Eosinophils # 0.1 10^3/uL (0.0-0.8); Eosinophils % 2.1 %; Hematocrit 38.9 % (37.0-47.0); Hemoglobin 12.3 g/dL (11.5-15.3); Lymphocytes % 32.7 %; Mean Corpuscular HGB Conc 31.6 g/dL (30.0-36.0); Mean Corpuscular Hemoglobin 27.6 pg (28.0-34.0); Mean Corpuscular Volume 87.2 fl (81-99); Mean Platelet Volume 8.2 fL (7.4-10.4); Monocytes # 0.5 10^3/uL (0.2-0.9); Monocytes % 7.9 %; Neutrophils % 56.3 %; Nucleated Red Blood Cells % 0 %; Platelet Count 298 10^3/cmm (130-400); Red Blood Count 4.46 10^6/uL (4.1-5.3); White Blood Count 6.1 10^3/uL (4.0-10.0)
[2022-01-23] MEDS: ketorolac 60 mg/2 mL INJ IM (15:50)
[2022-01-23 15:57] LABS: Alanine Aminotransferase 21 U/L (0-33); Albumin Level 4.1 g/dL (3.5-5.2); Alkaline Phosphatase 114 U/L (35-105); Aspartate Amino Transferase 36 U/L (0-32); Blood Urea Nitrogen 4 mg/dL (6-20); Calcium 8.8 mg/dL (8.5-10.5); Carbon Dioxide 25 mmol/L (22-29); Chloride 105 mmol/L (98-107); Glomerular Filtration Rate 138.1 mL/min (90-130); Glucose 95 mg/dL (65-115); Osmolality Calculated 287 mOsm/kg (285-295); Sodium 140 mmol/L (136-145); Total Bilirubin 0.2 mg/dL (0.15-1.2); Total Protein 7.1 g/dL (6.6-8.7)
[2022-01-23 16:36] VITALS: BP 148/83; PULSE 75; RESP 16; TEMP 36.7; O2SAT 97
== END 2022-01-23 16:39 | disposition home or self-care (01) ==
PROVIDERS: Emergency Provider Physician Assistant; PCP Nurse Practitioner Family
DX: G44.319 Acute post-traumatic headache, not intractable (principal); Z87.891 Personal history of nicotine dependence; I10 Essential (primary) hypertension; E11.9 Type 2 diabetes mellitus without complications
CPT/HCPCS: 36415; 70450; 80053; 85025; 96372; 99285; J1885

== ENCOUNTER 2022-01-23 21:33 | Emergency (ER) | payer OTHER, SELFPAY ==
[2022-01-23 21:37] VITALS: BP 151/88; PULSE 78; RESP 16; TEMP 36.1; O2SAT 99
--- NOTE | 2022-01-23 21:45 | W.ED.ALLEREA ---
HPI - Allergic Reaction General: Chief complaint: Allergic Reaction Stated complaint: Allergic Reaction Time Seen by Provider: 01/23/22 21:45 History of Present Illness: HPI narrative: 36-year-old female comes in today for complaints of rash. Patient was given a dose of Toradol this afternoon around 3:00 and this evening noticed that she had broken out in a rash. Patient does have a history of allergies to NSAIDs. Patient taken 50 mg of diphenhydramine prior to arrival to the ER. Patient appears nontoxic. Patient appears in no respiratory distress. Patient has a history of hypertension, anxiety, anemia, and borderline personality disorder. Review of Systems General: Reports: 10 or more systems reviewed and unremarkable except in HPI and below ENMT: Denies: throat pain Card: Denies: chest pain Resp: Denies: dyspnea Skin/Breast: Reports: rash PFSH ED PFSH: Medical History Anxiety and depression Binge eating disorder Bipolar disorder, current episode mixed, severe, without psychotic features R/O Borderline personality disorder Essential hypertension History of COVID-19 Non-insulin dependent type 2 diabetes mellitus Other iron deficiency anemias Post-traumatic stress disorder, chronic Surgical History S/P laparoscopic sleeve gastrectomy (~2012) Status post laparoscopic cholecystectomy Family History Mother Fistula Hypertension Heart problem CAD (coronary artery disease) Cervical cancer dx in her 30's Hyperlipidemia Stroke Grandmother Heart problem [place]; Pacemaker Diabetes Maternal Father Hypertension Hyperlipidemia Stroke Denies family history of Chronic kidney disease (CKD) Anesthesia complication Bleeding disorder Social History (Updated 09/04/21 @ 12:49 by Roe Reno RN) Smoking and tobacco status: former smoker Alcohol intake: current Alcohol intake frequency: holidays/special occasions only Alcohol type: hard liquor Adopted: No Caregiver/support person: Yes Lives independently: No Household members: children Housing: House Marital status: Number of children: 1 Current occupational status: employed Female Reproductive History: Date of last menstrual period: 12/25/20 Physical Exam Const: COMMON NORMALS: alert HENMT: COMMON NORMALS: normocephalic HEAD & SCALP: normocephalic Neck/C-Spine: COMMON NORMALS: full ROM Resp: COMMON NORMALS: normal respiratory effort and clear to auscultation bilaterally AUSCULTATION: clear to auscultation bilaterally Cardio: COMMON NORMALS: regular rate and regular rhythm RATE: regular rate RHYTHM: regular rhythm GI: COMMON NORMALS: Soft to palpation PALPATION: Yes Soft to palpation : COMMON NORMALS: Yes no CVA tenderness BLADDER/KIDNEY EXAM: Yes no CVA tenderness Back/Pelvis: COMMON NORMALS: no CVA tenderness and thoracic and lumbar spine normal to inspection Extremity: COMMON NORMALS: normal to inspection Neuro: SENSORIUM/ORIENTATION: Yes alert Skin: LESIONS: lesion noted (Punctate lesion no surrounding erythema to the right lower abdomen) RASHES: rashes noted (Erythematous confluent generalized rash) Course Vital Signs: Vital signs: Vital Signs Temperature 97.0 F L 01/23/22 21:37 Pulse Rate 78 01/23/22 21:37 Respiratory Rate 16 01/23/22 21:37 Blood Pressure 151/88 01/23/22 21:37 Pulse Oximetry 99 01/23/22 21:37 Oxygen Delivery Me thod 01/23/22 21:37 MDM - Allergic Reaction Medical Decision Making Patient comes in for evaluation of allergic reaction to ketorolac. Patient has a history of prior allergies and was given a dose of Toradol earlier today for a headache. Patient reports tonight prior to going to bed she noticed an generalized rash. On exam lungs are clear to auscultation. Posterior pharynx is pink and moist with open airway. No signs of severe distress. Differential diagnosis includes adverse drug effect, allergic reaction, anaphylaxis, urticaria. Believe its adverse drug effect without significant reaction. No signs of serious illness or injury was noted. Reviewed exam with patient and her family member with recommendations for continuing antihistamine and was given a dose of dexamethasone. Patient reported understanding of care plan need for follow-up or return to the ER. Discharge Plan Discharge Patient Disposition: Home Clinical Impression: Adverse reaction to drug Qualifiers: Encounter type: initial encounter Qualified Code(s): T50.905A - Adverse effect of unspecified drugs, medicaments and biological substances, initial encounter Condition: Stable Prescriptions: No Action omeprazole 20 mg tablet,delayed release (DR/EC) 40 mg PO DAILY quetiapine [Seroquel] 100 mg tablet 100 mg PO DAILY escitalopram oxalate [Lexapro] 10 mg tablet 20 mg PO DAILY amlodipine 5 mg tablet 10 mg PO DAILY Discharge Orders: Discharge ED (Routine); Ordered 01/23/22 Ordered By: Jvaed Denny Referrals: Duyen Waddell FNP [Primary Care Provider] - Discharge Diet: Usual diet Discharge Activity: Increase activity as tolerated Patient Instructions: Urticaria (ED) Activity Restrictions/Additional Instructions: Drink plenty of fluids. Use Claritin or Zyrtec 1 or 2 tabs twice a day for rash until clear. Follow-up with primary care as needed. Return to ED for new concerns or worsening symptoms such as shortness of breath, swelling of the tongue, or fever greater than 100.4. 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
[2022-01-23] MEDS: famotidine 20 mg Tablet 40 MG PO (22:06)
[2022-01-23] MEDS: diphenhydrAMINE 50 mg/mL SDV 1mL IM (22:06)
[2022-01-23] MEDS: dexamethasone 10 mg/mL INJ IM (22:06)
[2022-01-23 22:45] VITALS: BP 111/67; PULSE 75; RESP 15; TEMP 36.4; O2SAT 96
== END 2022-01-23 22:47 | disposition home or self-care (01) ==
PROVIDERS: Emergency Provider Nurse Practitioner Family; PCP Nurse Practitioner Family
DX: L27.0 Generalized skin eruption due to drugs and medicaments taken internally (principal); T39.8X5A Adverse effect of other nonopioid analgesics and antipyretics, not elsewhere classified, initial encounter; Z87.891 Personal history of nicotine dependence; I10 Essential (primary) hypertension; E11.9 Type 2 diabetes mellitus without complications
CPT/HCPCS: 96372; 99284; J1100; J1200

== ENCOUNTER 2022-01-31 09:55 | Day surgery (SDC) | payer OTHER, SELFPAY ==
[2022-01-30 13:06] VITALS: BMI 47.2
[2022-01-31 10:26] VITALS: BP 124/74; PULSE 66; RESP 18; TEMP 36.3; O2SAT 99
[2022-01-31] MEDS: sodium chloride 0.9% 1,000 ML 30 ML IV (10:37)
[2022-01-31 10:43] LABS: OR HCG Qualitative Urine Negative (Negative)
--- NOTE | 2022-01-31 11:36 | ANES.PREANE2 ---
Pre-Anesthetic Assessment Height/Weight: Height 1.68 m Weight 132.903 kg Temp Pulse Resp BP Pulse Ox 97.4 F L 66 18 124/74 99 01/31/22 10:26 01/31/22 10:26 01/31/22 10:26 01/31/22 10:26 01/31/22 10:26 Operation Date: 01/31/22 11:00 Proposed Procedures p 44604 colon, 46905 egd K21.9,D50.9(Not Applicable) - DO rc Cote Colonoscopy(Not Applicable) - Mark Skinner DO Familial anesthetic complications: none Was Beta Anais taken within 24 hours: N/A Was Clonidine taken within 24 hours: N/A Last intake: Intake Last Liquid Date 01/31/22 Last Liquid Time 22:00 Last Solid Date 01/30/22 Last Solid Time 08:30 Social No alcohol and No tobacco Exam alert and oriented x 3 Airway Submandibular: within normal limits Cervical ROM: within normal limits Mallampati: Class III Dentition: full (states she has cracks in her teeth) History/ROS No significant history except as noted Pulmonary Sleep Apnea (states its resolved) CV/HEM Hypertension None reported Hepatic None reported GI Gastroesophageal Reflux Disease Metabolic Diabetes Mellitus (diet controlled) and Morbid Obesity gastric sleeve Musc/skel None reported Neuropsych None reported Anesthetic Plan ASA status: 3 Anesthesia: Anesthesia Evaluation and MAC Medications/Allergies Home Medications Medication Instructions Recorded Confirmed Last Taken Type quetiapine 100 mg tablet (Seroquel) 100 mg PO DAILY 07/27/20 01/30/22 01/30/22 History amlodipine 5 mg tablet 10 mg PO DAILY 09/04/21 01/30/22 01/30/22 History escitalopram oxalate 10 mg tablet 20 mg PO DAILY 09/04/21 01/30/22 01/30/22 History (Lexapro) omeprazole 20 mg tablet,delayed 40 mg PO DAILY 09/04/21 01/30/22 01/30/22 History release amitriptyline 10 mg tablet 10 mg PO DAILY 01/30/22 01/30/22 01/30/22 History cyclobenzaprine 10 mg tablet 10 mg PO TID PRN Muscle Spasm 01/30/22 01/31/22 2 Months Ago History ~12/01/21 hydrochlorothiazide 12.5 mg tablet 12.5 mg PO DAILY 01/30/22 01/30/22 01/30/22 History Allergies Allergy/AdvReac Type Severity Reaction Status Date / Time cariprazine [From Vraylar] Allergy Intermediate hallutionat Verified 01/30/22 13:02 ions bupropion [From Wellbutrin] Allergy ALGY-Hives Verified 01/30/22 13:02 ketorolac [From Toradol] Allergy ALGY-Hives Verified 01/30/22 13:02 lamotrigine [From Lamictal] Allergy Unknown Verified 01/30/22 13:02 Penicillins Allergy ALGY-Anaphy Verified 01/30/22 13:02 laxis trazodone Allergy ADR-Depress Verified 01/30/22 13:02 ion NSAIDS (Non-Steroidal AdvReac Mild diarrhea, Verified 01/30/22 13:02 Anti-Inflamma upset stomach Current Medications Generic Name Dose Route Start Last Admin Trade Name Freq PRN Reason Stop Dose Admin Sodium Chloride 1,000 mls @ 30 mls/hr 01/31/22 10:15 01/31/22 10:37 Sodium Chloride 0.9% IV 02/01/22 10:14 30 mls/hr .Q24H SUNIL Administration PFSH Anesthesia Medical History (Updated 01/31/22 @ 00:01 by ) Anxiety and depression Binge eating disorder Bipolar disorder, current episode mixed, severe, without psychotic features R/O Borderline personality disorder Essential hypertension GERD (gastroesophageal reflux disease) History of COVID-19 Non-insulin dependent type 2 diabetes mellitus Other iron deficiency anemias Post-traumatic stress disorder, chronic Surgical History S/P laparoscopic sleeve gastrectomy (~2012) Status post laparoscopic cholecystectomy Family History Mother Fistula Hypertension Heart problem CAD (coronary artery disease) Cervical cancer dx in her 30's Hyperlipidemia Stroke Grandmother Heart problem [place]; Pacemaker Diabetes Maternal Father Hypertension Hyperlipidemia Stroke Denies family history of Chronic kidney disease (CKD) Anesthesia complication Bleeding disorder Social History Smoking and tobacco status: former smoker Alcohol intake: current Alcohol intake frequency: holidays/special occasions only Alcohol type: hard liquor Adopted: No Caregiver/support person: Yes Lives independently: No Household members: children Housing: House Marital status: Number of children: 1 Current occupational status: employed Female Reproductive History Date of last menstrual period: 12/25/21 Data Anesthesia Cardiac Studies: Echocardiogram Ultrasound 05/17/20
--- NOTE | 2022-01-31 11:49 | W.PM.OPSUD ---
Surgery/Procedure H&P Update DATE OF PROCEDURE: January 31, 2022 DATE H&P PERFORMED: 01/30/22 PLANNED PROCEDURE: Operation Date: 01/31/22 11:00 Proposed Procedures p 35229 colon, 16802 egd K21.9,D50.9(Not Applicable) - DO rc Cote Colonoscopy(Not Applicable) - Mark Skinner DO
[2022-01-31 12:15] VITALS: BP 90/50; PULSE 62; RESP 16; TEMP 36.2; O2SAT 93
--- NOTE | 2022-01-31 12:17 | ANE.PACU2 ---
Inpatient post-anesthesia follow up: Airway intact: Yes Vital signs: Temperature 97.4 F Pulse Rate 66 Respiratory Rate 18 Blood Pressure 124/74 Pulse Oximetry 99 Oxygen Delivery Me thod Oxygen Flow Rate Fraction of Inspir ed Oxygen Hydration adequate: Yes Nausea and vomiting: No Pain level: 1 Mental status: Baseline
[2022-01-31 12:28] VITALS: BP 103/60; PULSE 61; RESP 16; O2SAT 98
== END 2022-01-31 12:50 | disposition home or self-care (01) ==
PROVIDERS: Anesthesiology; PCP Nurse Practitioner Family; Visit Provider Surgery
PROC: 0DJ08ZZ Inspection of Upper Intestinal Tract, Via Natural or Artificial Opening Endoscopic (ICD-10-PCS; CPT 43235; principal; 2022-01-31 11:00)
PROC: 0DJD8ZZ Inspection of Lower Intestinal Tract, Via Natural or Artificial Opening Endoscopic (ICD-10-PCS; CPT 45378; 2022-01-31 11:00)
DX: K21.9 Gastro-esophageal reflux disease without esophagitis (principal); D50.9 Iron deficiency anemia, unspecified; K29.50 Unspecified chronic gastritis without bleeding; B96.81 Helicobacter pylori [H. pylori] as the cause of diseases classified elsewhere; G47.30 Sleep apnea, unspecified; I10 Essential (primary) hypertension; E11.9 Type 2 diabetes mellitus without complications; E66.01 Morbid (severe) obesity due to excess calories; Z68.42 Body mass index [BMI] 45.0-49.9, adult; Z86.16 Personal history of COVID-19; Z87.891 Personal history of nicotine dependence
CPT/HCPCS: 43239; 45378; 84703; 88305; J2704; J7030

== ENCOUNTER → 2022-02-20 15:35 | Outpatient (BNVA) | payer OTHER, SELFPAY | PROVIDERS: PCP Nurse Practitioner Family; Visit Provider Nurse Practitioner Family | DX: R50.9 Fever, unspecified (principal) | CPT/HCPCS: 87400 ==

== ENCOUNTER 2022-03-14 14:07 | Oncology outpatient (recurring) (ONCR) | payer OTHER, SELFPAY ==
[2022-03-08 08:26] LABS: Basophils # 0.1 10^3/uL (0.0-0.1); Basophils % 0.6 %; Eosinophils # 0.1 10^3/uL (0.0-0.8); Eosinophils % 1.1 %; Hematocrit 42.2 % (37.0-47.0); Hemoglobin 13.2 g/dL (11.5-15.3); Lymphocytes % 25.7 %; Mean Corpuscular HGB Conc 31.3 g/dL (30.0-36.0); Mean Corpuscular Hemoglobin 28.5 pg (28.0-34.0); Mean Corpuscular Volume 91.1 fl (81-99); Mean Platelet Volume 8.3 fL (7.4-10.4); Monocytes # 0.5 10^3/uL (0.2-0.9); Monocytes % 6.6 %; Neutrophils # 5.15 10^3/uL (1.8-7.7); Neutrophils % 65.7 %; Nucleated Red Blood Cells % 0 %; Platelet Count 327 10^3/cmm (130-400); Red Blood Count 4.63 10^6/uL (4.1-5.3); Red Cell Distribution Width 15.8 % (12.1-15.1); White Blood Count 7.9 10^3/uL (4.0-10.0)
[2022-03-08 08:55] LABS: Alanine Aminotransferase 25 U/L (0-33); Albumin Level 3.8 g/dL (3.5-5.2); Alkaline Phosphatase 108 U/L (35-105); Anion Gap 16.9 (5-19); Aspartate Amino Transferase 30 U/L (0-32); Blood Urea Nitrogen 6 mg/dL (6-20); Calcium 9.4 mg/dL (8.5-10.5); Carbon Dioxide 23 mmol/L (22-29); Chloride 106 mmol/L (98-107); Ferritin 80 ng/mL (15-150); Globulin 3.5 g/dL (1.3-4.6); Glomerular Filtration Rate 111.9 mL/min (90-130); Glucose 105 mg/dL (65-115); Iron 39 ug/dL (37-145); Osmolality Calculated 292 mOsm/kg (285-295); Percent Saturation 14.7 % (20-50); Potassium 3.9 mmol/L (3.5-5.1); Sodium 142 mmol/L (136-145); Total Bilirubin 0.2 mg/dL (0.15-1.2); Total Iron Binding Capacity 265 mcg/dl; Total Protein 7.3 g/dL (6.6-8.7); Unsaturated Iron Binding 226 ug/dL (112-347)
[2022-03-14] MEDS: sodium chloride 0.9% 250 ML 50 ML IV (14:37)
[2022-03-14] MEDS: ferric carboxy (IVPB) 750 MG in sodium chloride 0.9% (100 ml) 100 ML 345 MG IV (14:45)
[2022-03-14 15:45] VITALS: BP 117/77; PULSE 68; RESP 18; TEMP 36.6; O2SAT 99
== END 2022-03-24 23:59 | disposition home or self-care (01) ==
PROVIDERS: PCP Nurse Practitioner Family; Visit Provider Internal Medicine Medical Oncology
DX: D50.8 Other iron deficiency anemias (principal); Z79.899 Other long term (current) drug therapy
CPT/HCPCS: 80053; 82728; 83540; 83550; 85025; 96365; J1439; J7050

== ENCOUNTER 2022-03-30 07:42 | Outpatient (CLI) | payer OTHER, SELFPAY | END 2022-03-30 07:43 | disposition home or self-care (01) | PROVIDERS: PCP Nurse Practitioner Family; Visit Provider Surgery | DX: R19.7 Diarrhea, unspecified (principal) | CPT/HCPCS: 83630; 87177; 87209; 87338; 87493; 87506 ==

== ENCOUNTER 2022-04-12 14:46 | Oncology outpatient (recurring) (ONCR) | payer OTHER, SELFPAY ==
[2022-04-12 15:21] LABS: Basophils # 0.1 10^3/uL (0.0-0.1); Basophils % 0.5 %; Eosinophils # 0.1 10^3/uL (0.0-0.8); Hematocrit 44.7 % (37.0-47.0); Hemoglobin 14.1 g/dL (11.5-15.3); Lymphocytes # 2.9 10^3/uL (0.8-4.8); Lymphocytes % 28.4 %; Mean Corpuscular HGB Conc 31.5 g/dL (30.0-36.0); Mean Corpuscular Hemoglobin 29.3 pg (28.0-34.0); Mean Corpuscular Volume 92.7 fl (81-99); Mean Platelet Volume 8.4 fL (7.4-10.4); Monocytes # 0.7 10^3/uL (0.2-0.9); Monocytes % 6.5 %; Neutrophils # 6.45 10^3/uL (1.8-7.7); Neutrophils % 63.3 %; Nucleated Red Blood Cells % 0 %; Platelet Count 314 10^3/cmm (130-400); Red Blood Count 4.82 10^6/uL (4.1-5.3); Red Cell Distribution Width 15.2 % (12.1-15.1); White Blood Count 10.2 10^3/uL (4.0-10.0)
[2022-04-12 15:52] LABS: Ferritin 256 ng/mL (15-150); Iron 40 ug/dL (37-145); Percent Saturation 13.9 % (20-50); Total Iron Binding Capacity 287 mcg/dl; Unsaturated Iron Binding 247 ug/dL (112-347)
== END 2022-04-24 23:59 | disposition home or self-care (01) ==
PROVIDERS: PCP Nurse Practitioner Family; Visit Provider Internal Medicine Medical Oncology
DX: D50.8 Other iron deficiency anemias (principal); Z79.899 Other long term (current) drug therapy
CPT/HCPCS: 36415; 82728; 83540; 83550; 85025

== ENCOUNTER 2022-05-30 15:01 | Emergency (ER) | payer OTHER, SELFPAY ==
[2022-05-30 15:08] VITALS: BP 142/96; PULSE 86; RESP 19; TEMP 36.7; O2SAT 96; BMI 46.1
--- NOTE | 2022-05-30 16:04 | W.ED.FEMALGU ---
HPI - Female Genitourinary General: Chief complaint: Urogenital-Female Stated complaint: abd pain Time Seen by Provider: 05/30/22 16:01 History of Present Illness: Ms. Lara is a 37-year-old lady with history of hypertension, obesity, known history of uterine fibroids and cysts presenting to the emergency department due to lower abdominal pain. She notes symptoms started at approximately 1 PM and have since worsened. Moderate to severe in intensity. Worse with palpation and movement. She does note some yellowish vaginal discharge. Denies signs of systemic illness. She is being evaluated for hysterectomy and has preop visit in [place] next week. No other specific changes in health, exacerbating, or alleviating factors identified. Onset (ago): hour(s) Location of symptoms: suprapubic Severity: moderate Quality of pain: cramping, dull and aching Consistency: constant Vaginal discharge: yellow Exacerbating factors: movement Relieving factors: none Associated symptoms: Reports no associated symptoms Review of Systems General: Reports: 10 or more systems reviewed and unremarkable except in HPI and below PFSH ED PFSH: Medical History Anxiety and depression Binge eating disorder Bipolar disorder, current episode mixed, severe, without psychotic features R/O Borderline personality disorder Essential hypertension GERD (gastroesophageal reflux disease) Helicobacter pylori gastritis History of COVID-19 Non-insulin dependent type 2 diabetes mellitus Other iron deficiency anemias Post-traumatic stress disorder, chronic Surgical History History of colonoscopy 01/31/2022 - normal per patient - Dr. Skinner History of esophagogastroduodenoscopy (EGD) 01/31/2022 - diagnosed with H pylori - Dr. Skinner S/P laparoscopic sleeve gastrectomy (~2012) Status post laparoscopic cholecystectomy Family History Mother Fistula Hypertension Heart problem CAD (coronary artery disease) Cervical cancer dx in her 30's Hyperlipidemia Stroke Grandmother Heart problem AL; Pacemaker Diabetes Maternal Father Hypertension Hyperlipidemia Stroke Denies family history of Chronic kidney disease (CKD) Anesthesia complication Bleeding disorder Social History Smoking and tobacco status: former smoker Alcohol intake: current Alcohol intake frequency: holidays/special occasions only Alcohol type: hard liquor Adopted: No Caregiver/support person: Yes Lives independently: No Household members: children Housing: House Marital status: Number of children: 1 Current occupational status: employed Physical Exam Const: COMMON NORMALS: alert GENERAL APPEARANCE: cooperative and well developed HENMT: COMMON NORMALS: normocephalic and atraumatic HEAD & SCALP: normocephalic and atraumatic Eye: COMMON NORMALS: conjunctivae normal CONJUNCTIVA: Yes conjunctivae normal SCLERA: sclerae normal Neck/C-Spine: COMMON NORMALS: supple GENERAL: Yes trachea midline Resp: COMMON NORMALS: clear to auscultation bilaterally EFFORT & INSPECTION: Yes able to speak in complete sentences AUSCULTATION: clear to auscultation bilaterally Cardio: COMMON NORMALS: regular rate and regular rhythm RATE: regular rate RHYTHM: regular rhythm GI: COMMON NORMALS: Soft to palpation PALPATION: Yes Soft to palpation and No Tenderness to palpation present (GI) Extremity: GENERAL: Yes normal exam except as noted and No edema Neuro: COMMON NORMALS: moves all extremities SENSORIUM/ORIENTATION: Yes alert and No Orientation impaired Psych: COMMON NORMALS: mental status grossly normal and Normal thought process present THOUGHT PROCESS: Normal thought process present Course Vital Signs: Vital signs: Vital Signs Temperature 98.1 F 05/30/22 15:08 Pulse Rate 71 05/30/22 18:23 Respiratory Rate 14 05/30/22 18:23 Blood Pressure 112/69 05/30/22 18:23 Pulse Oximetry 99 05/30/22 18:23 Oxygen Delivery Me thod 05/30/22 15:08 MDM - Female Medical Decision Making 37-year-old female presenting with vaginal bleeding and abdominal cramping in the context of history of uterine fibroids and currently evaluation for hysterectomy. Patient is nontoxic appearance and there is no evidence of acute surgical abdomen. Labs notable for mild leukocytosis, normal hemoglobin and metabolic panel. Hematuria without UTI. Wet prep negative. Prior imaging reviewed. Patient improved with analgesia and antispasmodic as well as fluids. Discussed additional evaluation which the patient is comfortable foregoing given clinical history at this time. The results of ED evaluation were discussed with the patient including prescriptions and/or symptomatic cares (if applicable) including appropriate and responsible use, followup plan, and return precautions. The patient verbalized understanding and felt safe for discharge. Medical Records I reviewed the patient's medical records. Lab Data I reviewed the patient's lab results. 05/30/22 16:35 05/30/22 16:35 Laboratory Results WBC 11.3 10^3/uL (4.0-10.0) H 05/30/22 16:35 RBC 4.33 10^6/uL (4.1-5.3) 05/30/22 16:35 Hgb 13.3 g/dL (11.5-15.3) 05/30/22 16:35 Hct 40.2 % (37.0-47.0) 05/30/22 16:35 MCV 92.8 fl (81-99) 05/30/22 16:35 MCH 30.7 pg (28.0-34.0) 05/30/22 16:35 MCHC 33.1 g/dL (30.0-36.0) 05/30/22 16:35 RDW 12.7 % (12.1-15.1) 05/30/22 16:35 Plt Count 335 10^3/cmm (130-400) 05/30/22 16:35 MPV 8.4 fL (7.4-10.4) 05/30/22 16:35 Neut % (Auto) 69.9 % 05/30/22 16:35 Lymph % (Auto) 21.6 % 05/30/22 16:35 Whiteside % (Auto) 6.6 % 05/30/22 16:35 Eos % (Auto) 1.1 % 05/30/22 16:35 Baso % (Auto) 0.4 % 05/30/22 16:35 Neut # (Auto) 7.88 10^3/uL (1.8-7.7) H 05/30/22 16:35 Lymph # (Auto) 2.4 10^3/uL (0.8-4.8) 05/30/22 16:35 Whiteside # (Auto) 0.7 10^3/uL (0.2-0.9) 05/30/22 16:35 Eos # (Auto) 0.1 10^3/uL (0.0-0.8) 05/30/22 16:35 Baso # (Auto) 0.0 10^3/uL (0.0-0.1) 05/30/22 16:35 Nucleated RBC % (auto) 0 % 05/30/22 16:35 Nucleated RBCs # 0.0 /100WBC 05/30/22 16:35 Sodium 138 mmol/L (136-145) 05/30/22 16:35 Potassium 3.6 mmol/L (3.5-5.1) 05/30/22 16:35 Chloride 101 mmol/L (98-107) 05/30/22 16:35 Carbon Dioxide 25 mmol/L (22-29) 05/30/22 16:35 Anion Gap 15.6 (5-19) 05/30/22 16:35 BUN 8 mg/dL (6-20) 05/30/22 16:35 Creatinine 0.6 mg/dL (0.5-0.9) 05/30/22 16:35 GFR Calculation 111.3 mL/min (90-130) 05/30/22 16:35 Glucose 96 mg/dL (65-115) 05/30/22 16:35 Calculated Osmolality 284 mOsm/kg (285-295) L 05/30/22 16:35 Calcium 8.7 mg/dL (8.5-10.5) 05/30/22 16:35 Total Bilirubin 0.2 mg/dL (0.15-1.2) 05/30/22 16:35 AST 18 U/L (0-32) 05/30/22 16:35 ALT 14 U/L (0-33) 05/30/22 16:35 Alkaline Phosphatase 89 U/L (35-105) 05/30/22 16:35 Total Protein 7.0 g/dL (6.6-8.7) 05/30/22 16:35 Albumin 4.0 g/dL (3.5-5.2) 05/30/22 16:35 Globulin 3.0 g/dL (1.3-4.6) 05/30/22 16:35 Lipase 54 U/L (13-60) 05/30/22 16:35 HCG, Qual Negative (Negative) 05/30/22 16:04 Urine Color Yellow (Yellow) 05/30/22 16:09 Urine Appearance Hazy (CLEAR) A 05/30/22 16:09 Urine pH 6.5 (5-7) 05/30/22 16:09 Ur Specific [place] 1.010 (1.005-1.030) 05/30/22 16:09 Urine Protein Neg (Negative) 05/30/22 16:09 Urine Glucose (UA) Norm (Normal) 05/30/22 16:09 Urine Ketones Negative (Negative) 05/30/22 16:09 Urine Blood 3+ (Negative) H 05/30/22 16:09 Urine Nitrate Negative (Negative) 05/30/22 16:09 Urine Bilirubin Neg (Negative) 05/30/22 16:09 Urine Urobilinogen Neg mg/dL (Negative) 05/30/22 16:09 Ur Leukocyte Esterase Negative (Negative) 05/30/22 16:09 Urine RBC 10-15 /hpf (0-2) H 05/30/22 16:09 Urine WBC None /hpf (0-5) 05/30/22 16:09 Ur Squamous Epith Cells Rare /hpf (0-5) 05/30/22 16:09 Amorphous Sediment Not Reportable 05/30/22 16:09 Urine Bacteria None /hpf (NONE) 05/30/22 16:09 Discharge Plan Discharge Patient Disposition: Home Clinical Impression: Pelvic pain Condition: Stable Prescriptions: New ondansetron 4 mg tablet,disintegrating 4 mg PO Q8H PRN (Reason: nausea and vomiting) Qty: 15 0RF oxycodone 5 mg tablet 5 mg PO Q4H PRN (Reason: pain) Qty: 20 0RF dicyclomine 10 mg capsule 10 mg PO TID PRN (Reason: cramping) Qty: 30 0RF No Action omeprazole 20 mg tablet,delayed release (DR/EC) 40 mg PO DAILY Hold Instructions: Resume on 03/14/22. quetiapine [Seroquel] 100 mg tablet 100 mg PO DAILY escitalopram oxalate [Lexapro] 10 mg tablet 20 mg PO DAILY amlodipine 5 mg tablet 10 mg PO DAILY cyclobenzaprine 10 mg tablet 10 mg PO TID PRN (Reason: Muscle Spasm) amitriptyline 10 mg tablet 10 mg PO DAILY hydrochlorothiazide 12.5 mg tablet 12.5 mg PO DAILY fluconazole [Diflucan] 150 mg tablet 150 mg PO Q3D PRN Rx Instructions: may repeat second dose 72 hrs after first dose if symptoms persist multivitamin Tablet See Rx Instructions PO DAILY Rx Instructions: 1 tablet - over the counter (d3. mag, vit c, super b complex, zinc, biotin orally daily; Saccharomyces boulardii [Daily Probiotic (S. boulardii)] 250 mg capsule 250 mg PO DAILY clindamycin phosphate 1 % lotion 1 applic topical BID Qty: 60 2RF Rx Instructions: to affected area on buttocks x 3 weeks then prn Discharge Orders: Discharge ED (Routine); Ordered 05/30/22 Ordered By: Hermilo Harrison Referrals: Duyen Waddell FNP [Primary Care Provider] - Discharge Diet: Usual diet Discharge Activity: Increase activity as tolerated Patient Instructions: Pelvic Pain (ED), Opioid Safety Activity Restrictions/Additional Instructions: Thank you for visiting the emergency department. You were seen and evaluated for pelvic pain. The exact cause of your symptoms is unclear though likely related to underlying pathology. Please continue planned follow-up. Also follow-up with your primary care provider. You may use [id number] medications such as acetaminophen and ibuprofen for pain however please do not exceed the daily recommended dosage as listed on the packaging and please keep in mind that many namebrand medications contain the same active ingredients. Please avoid these medications if previously instructed to do so by another physician due to other underlying medical condition. I will prescribe oxycodone and Bentyl as discussed. Use oxycodone carefully. Return to the emergency department for worsening symptoms or anything else that you are concerned about and feel needs emergency department evaluation Coding Level of Care Code ED Project Management Intern for [employer] Will
[2022-05-30 16:30] LABS: HCG Qualitative Urine. Negative (Negative)
[2022-05-30 16:44] LABS: Basophils % 0.4 %; Eosinophils # 0.1 10^3/uL (0.0-0.8); Eosinophils % 1.1 %; Hematocrit 40.2 % (37.0-47.0); Hemoglobin 13.3 g/dL (11.5-15.3); Lymphocytes # 2.4 10^3/uL (0.8-4.8); Lymphocytes % 21.6 %; Mean Corpuscular HGB Conc 33.1 g/dL (30.0-36.0); Mean Corpuscular Hemoglobin 30.7 pg (28.0-34.0); Mean Corpuscular Volume 92.8 fl (81-99); Mean Platelet Volume 8.4 fL (7.4-10.4); Monocytes # 0.7 10^3/uL (0.2-0.9); Monocytes % 6.6 %; Neutrophils # 7.88 10^3/uL (1.8-7.7); Neutrophils % 69.9 %; Nucleated Red Blood Cells % 0 %; Platelet Count 335 10^3/cmm (130-400); Red Blood Count 4.33 10^6/uL (4.1-5.3); Red Cell Distribution Width 12.7 % (12.1-15.1); White Blood Count 11.3 10^3/uL (4.0-10.0)
[2022-05-30 16:45] VITALS: RESP 16
[2022-05-30] MEDS: morphine 4 mg/mL SDV 1 mL IVP (16:45)
[2022-05-30] MEDS: sodium chloride 0.9% 1,000 ML 999 ML IV (16:45)
[2022-05-30 16:48] LABS: Add Urine Microscopic? YES; Bilirubin Urine Neg (Negative); Blood Urine 3+ (Negative); Glucose Urine UA Norm (Normal); Ketones Urine Negative (Negative); Leukocyte Esterase Urine Negative (Negative); Nitrate Urine Negative (Negative); Protein Urine Neg (Negative); Urine Appearance Hazy (CLEAR); Urine Color Yellow (Yellow); Urobilinogen Urine Neg (Negative); pH Urine 6.5 (5-7)
[2022-05-30 16:55] LABS: Add Urine Culture? Yes; Squamous Epithelial Cell Urine RARE /hpf (0-5)
[2022-05-30 17:01] LABS: Alanine Aminotransferase 14 U/L (0-33); Alkaline Phosphatase 89 U/L (35-105); Anion Gap 15.6 (5-19); Aspartate Amino Transferase 18 U/L (0-32); Blood Urea Nitrogen 8 mg/dL (6-20); Calcium 8.7 mg/dL (8.5-10.5); Carbon Dioxide 25 mmol/L (22-29); Chloride 101 mmol/L (98-107); Glomerular Filtration Rate 111.3 mL/min (90-130); Glucose 96 mg/dL (65-115); Lipase 54 U/L (13-60); Osmolality Calculated 284 mOsm/kg (285-295); Potassium 3.6 mmol/L (3.5-5.1); Sodium 138 mmol/L (136-145); Total Bilirubin 0.2 mg/dL (0.15-1.2)
[2022-05-30] MEDS: dicyclomine 10 mg Capsule PO (17:39)
[2022-05-30] MEDS: fentaNYL 50 mcg/mL INJ 2mL IVP (17:39)
[2022-05-30] MEDS: acetaminophen 500 mg Tablet 1000 MG PO (17:39)
[2022-05-30 18:23] VITALS: BP 112/69; PULSE 71; RESP 14; O2SAT 99
== END 2022-05-30 18:24 | disposition home or self-care (01) ==
PROVIDERS: Emergency Provider Emergency Medicine; PCP Nurse Practitioner Family
DX: R10.2 Pelvic and perineal pain (principal); Z87.891 Personal history of nicotine dependence; I10 Essential (primary) hypertension; E11.9 Type 2 diabetes mellitus without complications
CPT/HCPCS: 80053; 81001; 81025; 83690; 85025; 87086; 87210; 96361; 96374; 96375; 99284; J2270; J3010; J7030

== ENCOUNTER 2022-07-16 11:01 | Oncology outpatient (recurring) (ONCR) | payer OTHER, SELFPAY ==
[2022-07-16 12:12] LABS: Basophils # 0.1 10^3/uL (0.0-0.1); Basophils % 0.4 %; Eosinophils # 0.1 10^3/uL (0.0-0.8); Eosinophils % 0.5 %; Hematocrit 41.6 % (37.0-47.0); Hemoglobin 13.6 g/dL (11.5-15.3); Lymphocytes # 2.2 10^3/uL (0.8-4.8); Lymphocytes % 17.9 %; Mean Corpuscular HGB Conc 32.7 g/dL (30.0-36.0); Mean Corpuscular Hemoglobin 30.3 pg (28.0-34.0); Mean Corpuscular Volume 92.7 fl (81-99); Mean Platelet Volume 8.2 fL (7.4-10.4); Monocytes # 0.6 10^3/uL (0.2-0.9); Monocytes % 5.1 %; Neutrophils % 75.4 %; Nucleated Red Blood Cells % 0 %; Platelet Count 305 10^3/cmm (130-400); Red Blood Count 4.49 10^6/uL (4.1-5.3); Red Cell Distribution Width 12.5 % (12.1-15.1); White Blood Count 12.1 10^3/uL (4.0-10.0)
[2022-07-16 12:27] LABS: Ferritin 179 ng/mL (15-150); Iron 56 ug/dL (37-145); Percent Saturation 19.9 % (20-50); Total Iron Binding Capacity 281 mcg/dl; Unsaturated Iron Binding 225 ug/dL (112-347)
== END 2022-07-22 23:59 | disposition home or self-care (01) ==
PROVIDERS: Nurse Practitioner Family; PCP Nurse Practitioner Family; Visit Provider Internal Medicine Medical Oncology
DX: E61.1 Iron deficiency (principal); D50.8 Other iron deficiency anemias
CPT/HCPCS: 36415; 82728; 83540; 83550; 85025

== ENCOUNTER 2022-10-10 11:21 | Oncology outpatient (recurring) (ONCR) | payer OTHER, SELFPAY ==
[2022-10-10 11:46] VITALS: BP 133/84; PULSE 71; TEMP 36.4; O2SAT 98
[2022-10-10 12:14] LABS: Basophils % 0.4 %; Eosinophils # 0.1 10^3/uL (0.0-0.8); Eosinophils % 1.4 %; Hematocrit 40.9 % (37.0-47.0); Hemoglobin 13.7 g/dL (11.5-15.3); Lymphocytes # 2.6 10^3/uL (0.8-4.8); Lymphocytes % 28.4 %; Mean Corpuscular HGB Conc 33.5 g/dL (30.0-36.0); Mean Corpuscular Hemoglobin 30.6 pg (28.0-34.0); Mean Corpuscular Volume 91.3 fl (81-99); Mean Platelet Volume 8.3 fL (7.4-10.4); Monocytes # 0.5 10^3/uL (0.2-0.9); Monocytes % 5.3 %; Neutrophils # 5.95 10^3/uL (1.8-7.7); Neutrophils % 64.1 %; Nucleated Red Blood Cells % 0 %; Platelet Count 330 10^3/cmm (130-400); Red Blood Count 4.48 10^6/uL (4.1-5.3); Red Cell Distribution Width 12.9 % (12.1-15.1); White Blood Count 9.3 10^3/uL (4.0-10.0)
[2022-10-10 12:22] LABS: Erythrocyte Sedimentation Rate 35 mm/hr (0-15)
[2022-10-10 12:32] LABS: Alanine Aminotransferase 18 U/L (0-33); Albumin Level 4.1 g/dL (3.5-5.2); Alkaline Phosphatase 106 U/L (35-105); Anion Gap 16.7 (5-19); Aspartate Amino Transferase 24 U/L (0-32); Blood Urea Nitrogen 7 mg/dL (6-20); C Reactive Protein 21.4 mg/L (0.0-4.9); Calcium 9.4 mg/dL (8.5-10.5); Carbon Dioxide 23 mmol/L (22-29); Chloride 102 mmol/L (98-107); Ferritin 149 ng/mL (15-150); Globulin 3.2 g/dL (1.3-4.6); Glomerular Filtration Rate 111.3 mL/min (90-130); Glucose 96 mg/dL (65-115); Iron 43 ug/dL (37-145); Osmolality Calculated 284 mOsm/kg (285-295); Percent Saturation 15.5 % (20-50); Potassium 3.7 mmol/L (3.5-5.1); Sodium 138 mmol/L (136-145); Total Bilirubin 0.3 mg/dL (0.15-1.2); Total Iron Binding Capacity 276 mcg/dl; Total Protein 7.3 g/dL (6.6-8.7); Unsaturated Iron Binding 233 ug/dL (112-347)
== END 2022-10-22 23:59 | disposition home or self-care (01) ==
PROVIDERS: Nurse Practitioner Family; PCP Nurse Practitioner Family; Visit Provider Internal Medicine Medical Oncology
DX: D50.8 Other iron deficiency anemias (principal)
CPT/HCPCS: 36415; 80053; 82728; 83540; 83550; 85025; 85651; 86140

== ENCOUNTER 2024-06-17 15:20 | Outpatient (CLI) | payer OTHER, SELFPAY | END 2024-06-17 15:21 | disposition home or self-care (01) | LOC: SLEEP 15:23 | PROVIDERS: PCP Nurse Practitioner Family; Visit Provider Nurse Practitioner Family | DX: G47.33 Obstructive sleep apnea (adult) (pediatric) (principal) | CPT/HCPCS: G0399 ==

== ENCOUNTER 2024-07-23 09:45 | Outpatient (CLI) | payer OTHER, SELFPAY ==
--- NOTE | 2024-07-23 09:40 | MM_ITS ---
WS: [id number] BILATERAL 3D TOMOSYNTHESIS DIGITAL SCREENING MAMMOGRAPHY WITH CAD CLINICAL INFORMATION: SCREENING HISTORY: Screening mammogram. No current complaints. COMPARISON: Baseline TECHNIQUE: Bilateral CC and MLO views. FINDINGS: Scattered fibroglandular densities bilaterally. No suspicious focal mass, asymmetry, calcifications, or architectural distortion. No evidence of malignancy. Skin calcifications. MM/MM scr tomosynthesis [id number] IMPRESSION: DENSITY: There are scattered areas of fibroglandular density. BI-RADS: 1 - Negative. FOLLOW UP: 1 Year Follow-up Recommend return to annual screening mammography.
== END 2024-07-23 09:46 | disposition home or self-care (01) ==
LOC: MOBLMAM 09:48
PROVIDERS: PCP Nurse Practitioner Family; Visit Provider Nurse Practitioner Family
DX: Z12.31 Encounter for screening mammogram for malignant neoplasm of breast (principal); R92.323 Mammographic fibroglandular density, bilateral breasts; R92.1 Mammographic calcification found on diagnostic imaging of breast
CPT/HCPCS: 77063; 77067